=== PATIENT | female | born 1945 | race Caucasian/White ===

== ENCOUNTER 2024-05-13 11:44 | Inpatient (IN) | payer OTHER, MEDICAID, MEDICARE, SELFPAY ==
[2024-05-13] VITALS (12 sets, daily range): BP systolic 145–191; BP diastolic 78–94; PULSE 71–88; RESP 18–20; TEMP 36.7–39.3; O2SAT 90–97; BMI 20.3
--- NOTE | 2024-05-13 11:53 | XR_ITS ---
Examination: AP chest single view Technique: AP portable semiupright chest single view Exam date and time: May 13, 2024 1209 hrs. Comparison August 14, 2023 Indications: Shortness of breath and coughing today Findings: Moderate enlargement left ventricle Atelectasis versus pneumonia left base retrocardiac Significant elevation right hemidiaphragm Mild vascular congestion Prominent osteopenia Impression: Atelectasis versus early pneumonia left base retrocardiac, clinical correlation advised
--- NOTE | 2024-05-13 11:54 | EKG_ITS ---
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[employer]: : 1945 Requested By: Nasrin Sheth Order Number: [id number] Reading MD: Nasrin Sheth Measurements Intervals [place] Rate: 71 P: 68 ND: 173 QRS: -58 QRSD: 125 T: 9 QT: 430 QTc: 470 Interpretive Statements SINUS RHYTHM RIGHT BUNDLE BRANCH BLOCK [120+ ms QRS DURATION, UPRIGHT V1, 40+ ms S IN I/aVL/V4/V5/V6] LEFT ANTERIOR FASCICULAR BLOCK [QRS AXIS <= -45, QR IN I, RS IN II] MINIMAL VOLTAGE CRITERIA FOR LVH, CONSIDER NORMAL VARIANT [MEETS CRITERIA IN ONE OF: R(aVL), S(V1), R(V5), R(V5/V6)+S(V1)] Compared to ECG 01/16/2024 15:31:12 T-wave abnormality no longer present Possible ischemia no longer present /store/S0/[id number].pdf
--- NOTE | 2024-05-13 11:56 | EDNOTE_ITS ---
ED SOB =RME/HPI General Chief Complaint: General Adult/Misc Complain Stated Complaint: HYPOXIA Time Seen by Provider: 05/13/24 11:51 Arrival date/time: 05/13/24 11:44 This is a 79-year-old female that is brought in by ambulance for complaints of shortness of breath, lethargy, weakness and a low-grade temp at facility. Per EMS patient's temp was 100.7. Per facility patient also had a cough. Upon their arrival patient's oxygen saturations were 78% on 2 L nasal cannula. Patient has a history of high blood pressure, dementia, depression, A-fib with RVR . Related Data Home Medications ?Medication ?Instructions ?Recorded ?Confirmed alprazolam 0.25 mg tablet (Xanax) 0.25 mg PO BID 11/08/21 01/16/24 aripiprazole 2 mg tablet 2 mg PO DAILY 11/08/21 01/16/24 potassium chloride 10 mEq 10 meq PO QDAY 11/08/21 01/16/24 tablet,extended release (Klor-Con) spironolactone 50 mg tablet 50 mg PO QAM 11/08/21 01/16/24 (Aldactone) amiodarone 200 mg tablet (Pacerone) 200 mg PO BID 11/09/21 05/13/24 famotidine 20 mg tablet (Pepcid) 20 mg PO QDAY 11/09/21 01/16/24 albuterol sulfate 2.5 mg/3 mL 2.5 mg inhalation Q4HR PRN 05/13/24 05/13/24 (0.083 %) solution for nebulization Shortness Of Breath aluminum-mag hydroxide-simethicone 10 ml PO [id number] PRN Stomach Upset 05/13/24 05/13/24 200 mg-200 mg-20 mg/5 mL oral susp (Dianne-Lanta) amitriptyline 25 mg tablet 25 mg PO DAILY 05/13/24 05/13/24 amlodipine 5 mg tablet 5 mg PO DAILY 05/13/24 05/13/24 ascorbic acid (vitamin C) 250 mg 250 mg PO QDAY 05/13/24 05/13/24 tablet bisacodyl 10 mg rectal suppository See Rx Instructions .Route 05/13/24 05/13/24 (Dulcolax (bisacodyl)) .COMPLEX PRN Constipation buspirone 10 mg tablet 10 mg PO BID 05/13/24 05/13/24 duloxetine 20 mg capsule,delayed 20 mg PO BID 05/13/24 05/13/24 release guaifenesin 100 mg/5 mL oral liquid 200 mg PO Q4H PRN Cough 05/13/24 05/13/24 hydroxyzine HCl 25 mg tablet 25 mg PO Q24H PRN FOR M/B 05/13/24 05/13/24 SEPARATION FROM SPOUSE ibuprofen 200 mg tablet 400 mg PO Q6H PRN PAIN 05/13/24 05/13/24 MODERATE(4-5),SEVERE(6-9) lisinopril 40 mg tablet 40 mg PO DAILY 05/13/24 05/13/24 magnesium hydroxide 400 mg/5 mL 30 ml PO Q72H PRN NO BM FOR 3 DAYS 05/13/24 oral suspension (Milk of Magnesia) metoprolol tartrate 25 mg tablet 25 mg PO BID 05/13/24 05/13/24 multivitamin with minerals 1 tab PO QDAY 05/13/24 05/13/24 ondansetron HCl 4 mg tablet 4 mg PO [id number] PRN Nausea And 05/13/24 05/13/24 Vomiting oxybutynin chloride 10 mg 10 mg PO DAILY 05/13/24 05/13/24 tablet,extended release 24 hr rizatriptan 5 mg tablet 5 mg PO [id number] PRN migraine pain 05/13/24 05/13/24 tramadol 50 mg tablet 50 mg PO [id number] PRN pain scale 05/13/24 05/13/24 4-10 Previous Rx's ?Medication ?Instructions ?Recorded clonidine HCl 0.1 mg tablet 0.1 mg PO TID #0 tabs 12/11/20 gabapentin 300 mg capsule 300 mg PO TID #0 caps 12/11/20 hydrocodone 5 mg-acetaminophen 325 1 tab PO BID PRN pain #4 tabs 11/17/21 mg tablet benzonatate 100 mg capsule 200 mg (2 x 100 mg) PO Q8HR PRN 05/16/24 Cough #0 caps nitrofurantoin macrocrystal 100 mg 100 mg PO BID 7 days #14 caps 05/16/24 capsule pantoprazole 40 mg tablet,delayed 40 mg PO QDAY 30 days #30 tabs 05/16/24 release (Protonix) Allergies Allergy/AdvReac Type Severity Reaction Status Date / Time Sulfa (Sulfonamide Allergy Unknown UNABLE TO Verified 06/04/20 14:02 Antibiotics) DESCRIBE Review of Systems Review of Systems Systems Reviewed: All systems reviewed, normal except as documented Past Medical History Past Medical History NEUROLOGIC: Positive Migraine CARDIAC: Positive Cardiac Disorders and Hypertension; Negative Congestive Heart Failure RESPIRATORY: Negative Chronic Obstructive Pulmonary Disease (COPD) or Asthma GENITOURINARY: Positive Genitourinary Disorders; Negative Renal Disease ENT: Negative Glaucoma ENDOCRINE: Negative Diabetes Mellitus Type 1 or Diabetes Mellitus Type 2 HEMATOLOGIC: Negative Blood Disorders or Sickle Cell Disease Surgical History SURGICAL: Positive Eye Surgery, Abdominal Surgery and Gastric Bypass Surgery Social History SMOKING STATUS: Never smoker SECOND HAND EXPOSURE: No SUBSTANCE USE: unknown ED Exam Narrative Physical exam: General: Thin but not emaciated appears not in any acute distress, warm to touch Head normocephalic HEENT: Eyes: Pupils are PERRLA EOMs are intact mouth pink dry membranes uvula is midline swallow is symmetrical. Within acceptable limits Neck is supple nontender no JVD no edema Chest equal chest rise nontender to palpation Respiratory: Clear to auscultation no wheezes crackles or rubs CV: Rate rhythm is regular no murmurs rubs or clicks Abdomen is soft nontender Back: No CVA tenderness no spinous process tenderness from cervical spine thoracic and lumbar spine Skin: Intact no petechiae rash induration ulceration or crepitus Extremities: Moving all extremity against resistance cap refill less than 2 seconds neurosensory intact, generalized weakness Neuro: Awake alert oriented x1, self, no focal deficits Course Quality Measures none Orders Category Date Time Status Bedside COVID-19 Antigen Test NOW Care 05/13/24 11:52 Completed Bedside COVID-19 Antigen Test NOW Care 05/13/24 13:52 Completed Bedside Influenza A&B Antigen Test NOW Care 05/13/24 11:53 Completed COVID-19 Screening Questionnaire NOW Care 05/13/24 13:40 Completed Behavioral Modification Assistant Q4H START 00 Care 05/13/24 11:53 Completed Continuous Pulse Oximetry NOW Care 05/13/24 11:54 Completed Decision to Admit X1 Care 05/13/24 13:40 Completed EKG (ED ONLY) *Do not use* NOW Care 05/13/24 11:54 Completed IV [Insert IV] STAT Care 05/13/24 11:56 Completed In and Out Catheter X1 Care 05/13/24 13:34 Completed EKG (ED Only) Stat Exams 05/13/24 11:54 Draft XR chest 1V Stat Exams 05/13/24 11:53 Completed BNP [B-Type Natriuretic Peptide] Stat Lab 05/13/24 12:15 Completed Blood Culture (Lab) Stat Lab 05/13/24 13:40 Completed CBC Stat Lab 05/13/24 12:15 Completed Comprehensive Metabolic Panel Stat Lab 05/13/24 12:15 Completed Lactate (Lactic Acid) Stat Lab 05/13/24 12:15 Completed PT [Prothrombin Time with INR] Stat Lab 05/13/24 12:15 Completed Procalcitonin Stat Lab 05/13/24 12:15 Completed Troponin I Stat Lab 05/13/24 12:15 Completed Urinalysis, C/S if Indicated Stat Lab 05/13/24 14:25 Completed Urine Culture Stat Lab 05/13/24 14:25 Completed Acetaminophen Supp [Tylenol Supp] Med 05/13/24 13:33 Discontinued 650 mg KS X1 ONE Acetaminophen Tab [Tylenol ES Tab] Med 05/13/24 13:21 Discontinued 1,000 mg PO X1 ONE Azithromycin Inj [Zithromax Inj] 500 mg Med 05/13/24 13:33 Discontinued Sodium Chloride 0.9% 250 ml [Ns] 250 ml IV X1 Azithromycin Po [Zithromax PO] Med 05/13/24 13:28 Discontinued 500 mg PO X1 ONE Oseltamivir [Tamiflu] Med 05/13/24 13:41 Discontinued 75 mg PO X1 ONE Sodium Chloride 0.9% 1000 ml [Ns] 1,000 ml Med 05/13/24 13:21 Discontinued IV 999 mls/hr cefTRIAXone/D5w 1gm IV premix [Rocephin/D5w 1gm IV Med 05/13/24 13:28 Discontinued premix] 50 ml IV X1 Vital Signs Vital signs: Vital Signs Temperature 102.7 F H 05/13/24 12:37 Pulse Rate 77 05/13/24 12:37 Respiratory Rate 19 05/13/24 12:37 Blood Pressure 170/88 H 05/13/24 12:37 Pulse Oximetry (%) 96 05/13/24 12:37 Oxygen Delivery Method Nasal Cannula 05/13/24 12:37 Oxygen Flow Rate 2 05/13/24 12:37 Shortness of Breath / Dyspnea MDM Narrative MDM Narrative:: Patient febrile with 102.7 rectally. Labs significant for white count 11.9, netrophil count 88, lymph low, patient metabolic panel shows sodium of 132, AST slightly elevated at 49 alk phos is 181, BNP 332, procalcitonin 0.26. Chest x- ray shows right lower lobe infiltrate but was previously there 3 months ago as well. Patient was hypoxic upon arrival on a nonrebreather. Have been able to wean patient on O2 and currently on 6 L nasal cannula. Patient positive for influenza A. Tylenol, IV fluids and Tamiflu ordered for patient. Hospitalist team called to admit patient to the hospital. Patient data External records reviewed:: [facility] previous records and Intermediate records Clinical information provided by:: patient Social determinants that could affect healthcare access:: none Patient has the following chronic illnesses:: see note How is presenting disease/condition affected by chronic disease/condition?: exacerbated by Evaluation data The following diagnostics were reviewed and interpreted by me:: lab results and radiology exam(s) Lab and/or radiology exams considered but not ordered:: none Interpretation Summary: see note Medications / Prescriptions Medications or Prescriptions considered but not ordered:: none Medication administrations:: Medication Administration History Discontinued Medications Acetaminophen (Acetaminophen 500 Mg Tablet) 1,000 mg PO X1 ONE Stop: 05/13/24 13:22 Last Admin: 05/13/24 13:42 Dose: Not Given Documented By: AMINAH Non-Admin Reason: Cancelled by Provider Acetaminophen (Acetaminophen Supp 650 Mg Supp) 650 mg [place] X1 ONE Stop: 05/13/24 13:34 Last Admin: 05/13/24 13:45 Dose: 650 mg Documented By: AMINAH Acetaminophen (Acetaminophen 325 Mg Tablet) 650 mg PO Q6HR PRN PRN Reason: Fever >100.1 Stop: 06/12/24 15:00 Last Admin: 05/15/24 00:04 Dose: 650 mg Documented By: Admin: 05/13/24 20:17 Dose: 650 mg Documented By: Albuterol/Ipratropium (Albuterol/Ipratropium (Duoneb) Rt Shanice 3 Ml Nebu) 3 ml INH Q6HRRT YARY Stop: 06/13/24 12:59 Last Admin: 05/16/24 12:37 Dose: 3 ml Documented By: Admin: 05/16/24 07:17 Dose: 3 ml Documented By: Admin: 05/16/24 00:16 Dose: 3 ml Documented By: SC Admin: 05/15/24 19:38 Dose: 3 ml Documented By: Admin: 05/15/24 12:19 Dose: 3 ml Documented By: Admin: 05/15/24 06:37 Dose: 3 ml Documented By: Admin: 05/15/24 01:45 Dose: 3 ml Documented By: Admin: 05/14/24 19:09 Dose: 3 ml Documented By: Admin: 05/14/24 13:53 Dose: 3 ml Documented By: WILFRIDO Amiodarone HCl (Amiodarone Hcl 200 Mg Tablet) 200 mg PO QDAY YAYR Stop: 06/13/24 08:59 Last Admin: 05/16/24 09:14 Dose: 200 mg Documented By: Admin: 05/15/24 08:28 Dose: 200 mg Documented By: Admin: 05/14/24 08:05 Dose: 200 mg Documented By: Amlodipine Besylate (Amlodipine Besylate 5 Mg Tablet) 5 mg PO QDAY YARY Stop: 06/13/24 08:59 Last Admin: 05/16/24 09:14 Dose: 5 mg Documented By: Admin: 05/15/24 08:38 Dose: 5 mg Documented By: Admin: 05/14/24 08:05 Dose: 5 mg Documented By: Azithromycin (Azithromycin 250 Mg Tablet) 500 mg PO X1 ONE Stop: 05/13/24 13:29 Last Admin: 05/13/24 13:43 Dose: Not Given Documented By: AMINAH Non-Admin Reason: Cancelled by Provider Benzonatate (Benzonatate 100 Mg Capsule) 100 mg PO Q8HR PRN; Protocol PRN Reason: COUGH Stop: 06/13/24 12:21 Last Admin: 05/15/24 08:38 Dose: 100 mg Documented By: Admin: 05/15/24 00:04 Dose: 100 mg Documented By: RB Benzonatate (Benzonatate 100 Mg Capsule) 200 mg PO Q8HR PRN; Protocol PRN Reason: COUGH Stop: 06/13/24 12:21 Last Admin: 05/16/24 09:19 Dose: 200 mg Documented By: RACQUEL Duloxetine HCl (Duloxetine Hcl 30 Mg Capsule) 30 mg PO BID YARY Stop: 06/12/24 20:59 Last Admin: 05/16/24 20:15 Dose: 30 mg Documented By: Admin: 05/16/24 09:14 Dose: 30 mg Documented By: Admin: 05/15/24 21:33 Dose: 30 mg Documented By: Admin: 05/15/24 08:28 Dose: 30 mg Documented By: Admin: 05/14/24 20:20 Dose: 30 mg Documented By: Admin: 05/14/24 08:05 Dose: 30 mg Documented By: Admin: 05/13/24 20:08 Dose: 30 mg Documented By: Enoxaparin Sodium (Enoxaparin Sod Inj 40 Mg/0.4 Ml Syringe) 40 mg SC QDAY YARY Stop: 05/28/24 08:59 Last Admin: 05/16/24 09:13 Dose: 40 mg Documented By: Admin: 05/15/24 08:29 Dose: 40 mg Documented By: Admin: 05/14/24 08:06 Dose: 40 mg Documented By: Famotidine (Famotidine 20 Mg Tablet) 20 mg PO DAILY YARY Stop: 06/12/24 15:14 Last Admin: 05/14/24 08:05 Dose: 20 mg Documented By: Admin: 05/13/24 15:41 Dose: 20 mg Documented By: AMINAH Guaifenesin/Dextromethorphan (Guaifenesin/Dm Tablet) 1 each PO BID YARY Stop: 06/12/24 20:59 Last Admin: 05/16/24 20:15 Dose: 1 each Documented By: Admin: 05/16/24 09:14 Dose: 1 each Documented By: Admin: 05/15/24 21:33 Dose: 1 each Documented By: Admin: 05/15/24 08:28 Dose: 1 each Documented By: Admin: 05/14/24 20:20 Dose: 1 each Documented By: Admin: 05/14/24 08:05 Dose: 1 each Documented By: Admin: 05/13/24 20:08 Dose: 1 each Documented By: Hydralazine HCl (Hydralazine Inj 20 Mg/Ml Vial) 10 mg IV Q2H PRN PRN Reason: SBP >180 Stop: 06/12/24 17:57 Last Admin: 05/13/24 19:33 Dose: 10 mg Documented By: Sodium Chloride (Ns) 1,000 mls @ 999 mls/hr IV .Q1H1M ONE Stop: 05/13/24 14:21 Last Infusion: 05/13/24 15:53 Dose: Infused Documented By: Admin: 05/13/24 13:26 Dose: 999 mls/hr Documented By: AMINAH Ceftriaxone Sodium/Dextrose (Rocephin/D5w 1gm Iv Premix) 50 mls @ 100 mls/hr IV X1 ONE Stop: 05/13/24 13:57 Last Admin: 05/13/24 13:43 Dose: Not Given Documented By: AMINAH Non-Admin Reason: Cancelled by Provider Azithromycin 500 mg/ Sodium (Chloride) 250 mls @ 250 mls/hr IV X1 ONE Stop: 05/13/24 14:32 Last Admin: 05/13/24 13:43 Dose: Not Given Documented By: AMINAH Non-Admin Reason: Cancelled by Provider Ampicillin Sodium/Sulbactam (Sodium 3 gm/ Sodium Chloride) 100 mls @ 200 mls/hr IV Q6HR [facility] Stop: 05/20/24 17:59 Last Admin: 05/14/24 05:15 Dose: 200 mls/hr Documented By: Infusion: 05/14/24 00:17 Dose: Infused Documented By: Admin: 05/13/24 23:47 Dose: 200 mls/hr Documented By: Infusion: 05/13/24 18:39 Dose: Infused Documented By: Admin: 05/13/24 18:09 Dose: 200 mls/hr Documented By: FRIDA Acetaminophen (Ofirmev Inj) 1,000 mg in 100 mls @ 250 mls/hr IV Q6H [facility] Stop: 05/16/24 04:23 Magnesium Sulfate (Magnesium Sulfate Ivpb) 2 gm in 50 mls @ 25 mls/hr IV X1 ONE Stop: 05/15/24 12:09 Last Admin: 05/15/24 10:28 Dose: 25 mls/hr Documented By: Acetaminophen (Ofirmev Inj) 1,000 mg in 100 mls @ 250 mls/hr IV Q6H YARY Stop: 05/16/24 06:53 Last Admin: 05/16/24 06:38 Dose: 250 mls/hr Documented By: Infusion: 05/16/24 01:08 Dose: Infused Documented By: Admin: 05/16/24 00:44 Dose: 250 mls/hr Documented By: Infusion: 05/15/24 18:28 Dose: Infused Documented By: Admin: 05/15/24 18:04 Dose: 250 mls/hr Documented By: Infusion: 05/15/24 12:45 Dose: Infused Documented By: Admin: 05/15/24 12:21 Dose: 250 mls/hr Documented By: Levalbuterol HCl (Levalbuterol Rt 0.63 Mg/3 Ml Nebu) 0.63 mg INH Q8HR PRN PRN Reason: WHEEZING Stop: 06/13/24 02:58 Last Admin: 05/14/24 03:14 Dose: 0.63 mg Documented By: ROGER Lisinopril (Lisinopril 20 Mg Tablet) 20 mg PO X1 ONE Stop: 05/13/24 18:01 Last Admin: 05/13/24 18:03 Dose: Not Given Documented By: UMBERTO Non-Admin Reason: Discontinued Lisinopril (Lisinopril 2.5 Mg Tablet) 10 mg PO X1 ONE Stop: 05/13/24 18:03 Last Admin: 05/13/24 18:13 Dose: 10 mg Documented By: FRIDA Lisinopril (Lisinopril 2.5 Mg Tablet) 10 mg PO X1 ONE Stop: 05/14/24 18:20 Last Admin: 05/14/24 18:36 Dose: 10 mg Documented By: Lisinopril (Lisinopril 20 Mg Tablet) 40 mg PO QDAY YARY Stop: 06/15/24 07:39 Last Admin: 05/16/24 09:34 Dose: Not Given Documented By: RACQUEL Non-Admin Reason: Duplicate Medication on eMAR Admin: 05/16/24 09:14 Dose: 40 mg Documented By: RACQUEL Melatonin (Melatonin 3 Mg Tablet) 3 mg PO X1 ONE Stop: 05/16/24 00:08 Last Admin: 05/16/24 00:44 Dose: 3 mg Documented By: CAMILA Ondansetron HCl (Ondansetron Inj 2 Mg/Ml Inj 2 Ml) 4 mg IV Q6HR PRN; Protocol PRN Reason: NAUSEA OR VOMITING Stop: 06/12/24 15:00 Oseltamivir Phosphate (Oseltamivir 6 Mg/Ml) 75 mg PO X1 ONE Stop: 05/13/24 13:42 Last Admin: 05/13/24 14:29 Dose: 75 mg Documented By: AMINAH Oseltamivir Phosphate (Oseltamivir 75 Mg Capsule) 75 mg PO DAILY [facility] Stop: 05/21/24 08:59 Last Admin: 05/16/24 09:14 Dose: 75 mg Documented By: Admin: 05/15/24 08:38 Dose: 75 mg Documented By: Admin: 05/14/24 08:06 Dose: 75 mg Documented By: Pantoprazole Sodium (Pantoprazole 40 Mg Tablet) 40 mg PO QDAY [facility] Stop: 06/14/24 08:59 Last Admin: 05/16/24 09:15 Dose: 40 mg Documented By: Admin: 05/15/24 08:28 Dose: 40 mg Documented By: Potassium Chloride (Potassium Chloride 10% 20 Meq/15 Ml Udc) 40 meq PO X1 ONE; Protocol Stop: 05/14/24 12:01 Last Admin: 05/14/24 12:22 Dose: 40 meq Documented By: Potassium Chloride (Potassium Chloride 10% 20 Meq/15 Ml Udc) 40 meq PO X1 ONE Stop: 05/14/24 09:31 Last Admin: 05/14/24 09:29 Dose: 40 meq Documented By: Potassium Chloride (Potassium Chloride 10% 20 Meq/15 Ml Udc) 40 meq GT X1 ONE Stop: 05/16/24 08:22 Last Admin: 05/16/24 09:15 Dose: 40 meq Documented By: RACQUEL Potassium Chloride (Potassium Chloride 10% 20 Meq/15 Ml Udc) 40 meq GT X1 ONE Stop: 05/16/24 12:01 Last Admin: 05/16/24 12:26 Dose: 40 meq Documented By: RACQUEL Quetiapine Fumarate (Quetiapine Fumarate 25 Mg Tablet) 25 mg PO X1 ONE Stop: 05/16/24 04:44 Last Admin: 05/16/24 04:53 Dose: 25 mg Documented By: CAMILA Sumatriptan Succinate (Sumatriptan 25 Mg Tablet) 25 mg PO X1 ONE Stop: 05/14/24 04:40 Last Admin: 05/14/24 04:55 Dose: 25 mg Documented By: ME Sumatriptan Succinate (Sumatriptan 25 Mg Tablet) 25 mg PO X1 ONE Stop: 05/14/24 18:46 Last Admin: 05/14/24 20:20 Dose: 25 mg Documented By: RB Sumatriptan Succinate (Sumatriptan 25 Mg Tablet) 25 mg PO HS YARY Stop: 06/14/24 20:59 Sumatriptan Succinate (Sumatriptan 25 Mg Tablet) 25 mg PO DAILY PRN PRN Reason: MIGRAINE HEADACHE Stop: 06/14/24 13:34 Last Admin: 05/15/24 22:43 Dose: 25 mg Documented By: CAMILA see mar Consultations Consultation(s) initiated? (list below): No Diagnosis Shortness of Breath Differential Diagnosis: acute exacerbation of chronic obstructive airways disease, congestive heart failure, community acquired pneumonia and other (influenza a ) Most likely diagnosis given after review of the tests above:: influenza a Admission Indicated Admission indicated?: indicated Admission Request Was there a request for admission?: Yes Admission Attestation Admission request attestation: Discussed case with [] from Hospitalist service regarding admission. Discussed patients ED course, exam findings, labs, and radiology results. The Hospitalist [agrees,declines] to accept the patient for admission. Disposition Plan Disposition Plan: Discharge Discharge Attestation Discharge Attestation: The patient and all family members were given an opportunity to ask questions and understood the discharge instructions. Discharge instructions specifically effects, indications for sooner follow up or return to the emergency department, and the expected course of current diagnosis. Patient condition: Stable Discharge Plan Plan Patient Disposition: Admit Acute Care w/in Hospital Disposition Comment: [facility] Patient condition on transfer: Stable Problem List Clinical Impression: Influenza A, Fever Patient/Caregiver Discharge Instructions Other Activity Instructions:: PATIENT INSTRUCTIONS: Follow-up with primary care provider within 1 week of discharge. Discussed elevation for polypharmacy with your PCP Return to Emergency Room if symptoms persist, worsen, or new symptoms develop. Stop taking CLONIDINE until you're seen by your PCP Continue taking all other medications as prescribed below: ? BENZONATATE 200 mg every 4 hours as needed for cough (NEW) ? Oseltamivir 75 mg twice daily (NEW) ? PANTOPRAZOLE 40 mg release daily (NEW) ? NITROFURANTOIN 100 mg twice daily (NEW) ? ALBUTEROL sulfate inhaler every 4 hours as needed for SOB ? GUAIFENESIN 200 mg q.4 hours PRN for cough ? ALPRAZOLAM 0.25 mg twice daily as needed ? AMITRIPTYLINE 25 mg daily ? TRAMADOL 50 mg q.6h. as needed for pain ? RIZATRIPTAN 5 mg every 6 hours PRN ? BUSPIRONE 10 mg twice daily ? DULOXETINE milligram twice daily ? HYDROXYZINE q.24 hours PRN ? GABAPENTIN 300 mg 3 times daily ? AMIODARONE 200 mg twice daily ? AMLODIPINE 5 mg daily ? LISINOPRIL 40 mg daily ? METOPROLOL 25 mg BID ? SPIRONOLACTONE 50 mg daily in the morning. ? POTASSIUM CHLORIDE 10 mill equivalent daily. ? OXYBUTYNIN 10 mg daily ? IBUPROFEN 200 mg every 6 hours for moderate pain ? IBUPROFEN 400 mg every 6 hours for severe pain ? HYDROCODONE ACETAMINOPHEN 5?3 25 twice daily as needed for severe pain ? Aluminum magnesium hydroxide SIMETHICONE suspension as prescribed. ? DULCOLAX 10 mg suppository as needed for constipation ? Milk of magnesia every 3 days as needed ? ONDANSETRON 4 mg every 6 hours as needed for nausea or vomiting. ? Multivitamin tablets daily ? VITAMIN C 25 mg daily PA/STONEWORK SUPERVISOR Supervising Physician PA/STONEWORK SUPERVISOR Supervising Physician: philip
[2024-05-13 12:39] LABS: Lactate (Lactic Acid) 1.3 mMol/L (0.4-2.0)
[2024-05-13 12:51] LABS: Basophils % (Auto) 0 % (0-2.5); Eosinophils % (Auto) 0 % (0-10); Hematocrit 40.6 % (36.0-46.0); Hemoglobin 12.9 g/dL (12.0-16.0); Immature Granulocytes % (Auto) 1 % (0-0); Lymphocytes # (Auto) 0.6 Thou/mm3 (1.0-4.8); Lymphocytes % (Auto) 5 % (10-50); Mean Corpuscular HGB Conc 31.8 g/dl (31.0-37.0); Mean Corpuscular Hemoglobin 26.9 pg (25.0-35.0); Mean Corpuscular Volume 85 fL (80-100); Monocytes # (Auto) 0.7 Thou/mm3 (0.0-0.8); Monocytes % (Auto) 6 % (0-12); Neutrophils # (Auto) 10.5 Thou/mm3 (1.8-7.7); Neutrophils % (Auto) 88 % (37-80); Nucleated Red Blood Cell % 0 /100 WBC (0); Platelet Count 344 Thou/mm3 (140-440); RDW Standard Deviation 47.2 fL (36.4-46.3); White Blood Count 11.9 Thou/mm3 (3.6-11.0)
[2024-05-13 12:57] LABS: Prothrombin Time 10.9 Seconds (9.0-12.2)
[2024-05-13 12:58] LABS: B-Type Natriuretic Peptide 332 pg/mL (0-100)
[2024-05-13 13:06] LABS: Alanine Aminotransferase 47 U/L (10-49); Albumin/Globulin Ratio 1.7 (1.2-2.2); Alkaline Phosphatase 181 U/L (46-116); Anion Gap 6 (7-16); Aspartate Amino Transferase 49 U/L (0-34); BUN/Creatinine Ratio 20 Ratio (12-20); Bilirubin,Total 0.2 mg/dL (0.3-1.2); Blood Urea Nitrogen 16 mg/dL (9-23); Calcium 8.8 mg/dL (8.3-10.6); Calcium (Corrected) 8.8 mg/dL (8.5-10.1); Carbon Dioxide 25.6 mMol/L (20.0-31.0); Chloride 100 mMol/L (98-107); Creatinine (Component) 0.8 mg/dL (0.6-1.3); Globulin 2.3 gm/dL (2.3-3.5); Glucose 98 mg/dL (74-106); Osmolality,Calculated 265 (275-295); Potassium 3.6 mMol/L (3.4-5.1); Procalcitonin 0.26 ng/ml (0.0-0.49); Sodium 132 mMol/L (136-145); Total Protein 6.3 gm/dL (5.7-8.2); Troponin I < 0.020 ng/mL (0.0-0.045); eGFR > 60 See Note
[2024-05-13] MEDS: SODIUM CHLORIDE 0.9% 1000 ML 1,000 ML 999 ML IV (13:26)
[2024-05-13] MEDS: ACETAMINOPHEN SUPP 650 MG SUPP PR (13:45)
[2024-05-13] MEDS: OSELTAMIVIR 6 MG/ML 75 MG PO (14:29)
[2024-05-13 15:15] LABS: Collection Type, Urine Catheter; Squamous Epithelial Cell,Urine 0 /hpf (0-5)
--- NOTE | 2024-05-13 15:29 | ESHP_ITS ---
Documentation for date of: 05/13/24 [facility] History of Present Illness Chief complaint: Altered sensorium History of present illness: A 78-year-old female with a past medical history of dementia, migraines, paroxysmal atrial fibrillation, spondylosis, major depressive disorder, hypertension, who brought in by ambulance to ER from [facility] with chief complaints of altered mental status and low oxygen saturations noted in her facility. Patient was noted to have altered sensorium and when examined her she was found to have low saturations at 70s in the transitional care center following which patient was started on oxygen through nasal cannula and EMS was called. When the EMS arrived patient was found to have still low oxygen saturations at 80s and patient was started on oxygen through oxygen mask following which saturations became normal. Patient was immediately brought to the ED following which patient slowly regained her sensorium. When asked about history, patient stated that she does not remember how she came to the hospital. Stated that she is having severe cough and mild chest pain due to cough. Denies fever, abdominal pain, burning micturition, shortness of breath. Patient is having dementia at baseline and does not remember the history well. ED Course: -Initial vitals were blood pressure 170/88 mmHg, pulse rate 77 bpm, respiratory rate 19/min, temperature 102.7 ?F, SpO2 96% with 2 L oxygen through nasal cannula -Labs significant for elevated WBC, 11.9, sodium 132, AST 49, BNP 332, Pro-Cholo 0.26, lactate 1.3. Urine analysis showed 6 RBC with 3 WBC. Chest x-ray showed signs of early pneumonia versus atelectasis in left retrocardiac base. EKG showed normal sinus rhythm with right bundle branch block. Tested positive for influenza B and negative for COVID and influenza A. -In the ED, patient was given a bolus of 1 L NS, Tamiflu, ceftriaxone and azithromycin -Patient was admitted for acute encephalopathy secondary to acute hypoxic respiratory failure due to influenza B Past medical history: dementia, migraines, paroxysmal atrial fibrillation, spondylosis, major depressive disorder, hypertension Past surgical history: Cholecystectomy, breast implants Social history: Smoking during teenage for 1 to 2 years and stopped since after, denies alcohol, other illicit drug abuse Allergies: Sulfa Review of Systems Review of Systems Narrative Review of Systems: Constitutional: No Weight Change, No Fever, No Chills, No Night Sweats, No Fatigue, No Malaise ENT/Mouth: No Hearing Changes, No Ear Pain, No Nasal Congestion, No Sinus Pain, No Hoarseness, No sore throat, No Rhinorrhea, No Swallowing Difficulty Eyes: No Eye Pain, No Swelling, No Redness, No Foreign Body, No Discharge, No Vision Changes Cardiovascular: No Chest Pain, SOB, No PND, No Dyspnea on Exertion, No Orthopnea, No Edema, No Palpitations Respiratory: Cough, No Sputum, No Wheezing, Dyspnea Gastrointestinal: No Nausea, No Vomiting, No Diarrhea, No Constipation, No Pain, No Heartburn, No Anorexia, No Dysphagia, No Hematochezia, No Melena, No Flatulence, No Jaundice Genitourinary: No Dysuria, No Urinary Frequency, No Hematuria, No Urinary Incontinence, No Urgency, No Flank Pain, No Urinary Flow Changes, No Hesitancy Musculoskeletal: No Arthralgias, No Myalgias, No Joint Swelling, No Joint Stiffness, No Back Pain, No Neck Pain, No Injury History Skin: No Skin Lesions, No Pruritis Neuro: No Weakness, No Numbness, No Paresthesias, No Loss of Consciousness, No Syncope, No Dizziness, No Headache, No Coordination Changes, No Recent Falls Exam Vital Signs Temp Pulse Resp BP Pulse Ox O2 Del Method O2 Flow Rate 102.2 F H 78 18 159/81 H 97 Room Air 2 05/13/24 14:27 05/13/24 14:27 05/13/24 14:27 05/13/24 14:27 05/13/24 14:27 05/13/24 14:27 05/13/24 12:37 Narrative Exam General: Awake. Responding to questions appropriately. HEENT: Normocephalic, atraumatic, mucous membranes dry. Heart: Regular rate and rhythm, no murmurs. Lungs: Bilateral transmitted breath sounds heard. Patient is coughing severely so breath sounds are not well-appreciated. Abdomen: Soft, nondistended, nontender, positive bowel sounds. ?No guarding or rebound tenderness. Neurologic: Alert and oriented x3, no gross neurological deficit, and patient able to move all 4 extremities. Extremities: No edema. Skin: No rash or ecchymoses. Results: Labs 05/14/24 04:40 05/14/24 04:40 Labs: Short CBC 12/28/24 Range/Units 12:15 WBC 11.9 H (3.6-11.0) Thou/mm3 Hgb 12.9 (12.0-16.0) g/dL Hct 40.6 (36.0-46.0) % Plt Count 344 (140-440) Thou/mm3 BMP 05/13/24 12:15 Sodium 132 L Potassium 3.6 Chloride 100 Carbon Dioxide 25.6 BUN 16 Creatinine 0.8 Glucose 98 Calcium 8.8 Cardiac Enzymes 05/13/24 Range/Units 12:15 Troponin I < 0.020 (0.0-0.045) ng/mL Liver Function 05/13/24 Range/Units 12:15 Total Bilirubin 0.2 L (0.3-1.2) mg/dL AST 49 H (0-34) U/L ALT 47 (10-49) U/L Alkaline Phosphatase 181 H (46-116) U/L Albumin 4.0 (3.4-4.8) gm/dL Quality Measures Quality Measures VTE prophylaxis Advance care planning discussed with:: patient Medications Home Medications and Allergies Home Medications ?Medication ?Instructions ?Recorded ?Confirmed ?Type alprazolam 0.25 mg tablet (Xanax) 0.25 mg PO BID 11/08/21 01/16/24 History aripiprazole 2 mg tablet 2 mg PO DAILY 11/08/21 01/16/24 History potassium chloride 10 mEq 10 meq PO QDAY 11/08/21 01/16/24 History tablet,extended release (Klor-Con) spironolactone 50 mg tablet 50 mg PO QAM 11/08/21 01/16/24 History (Aldactone) amiodarone 200 mg tablet (Pacerone) 200 mg PO BID 11/09/21 05/13/24 History famotidine 20 mg tablet (Pepcid) 20 mg PO QDAY 11/09/21 01/16/24 History albuterol sulfate 2.5 mg/3 mL 2.5 mg inhalation Q4HR PRN 05/13/24 05/13/24 History (0.083 %) solution for nebulization Shortness Of Breath aluminum-mag hydroxide-simethicone 10 ml PO [id number] PRN Stomach Upset 05/13/24 05/13/24 History 200 mg-200 mg-20 mg/5 mL oral susp (Dianne-Lanta) amitriptyline 25 mg tablet 25 mg PO DAILY 05/13/24 05/13/24 History amlodipine 5 mg tablet 5 mg PO DAILY 05/13/24 05/13/24 History ascorbic acid (vitamin C) 250 mg 250 mg PO QDAY 05/13/24 05/13/24 History tablet bisacodyl 10 mg rectal suppository See Rx Instructions .Route 05/13/24 05/13/24 History (Dulcolax (bisacodyl)) .COMPLEX PRN Constipation buspirone 10 mg tablet 10 mg PO BID 05/13/24 05/13/24 History duloxetine 20 mg capsule,delayed 20 mg PO BID 05/13/24 05/13/24 History release guaifenesin 100 mg/5 mL oral liquid 200 mg PO Q4H PRN Cough 05/13/24 05/13/24 History hydroxyzine HCl 25 mg tablet 25 mg PO Q24H PRN FOR M/B 05/13/24 05/13/24 History SEPARATION FROM SPOUSE ibuprofen 200 mg tablet 400 mg PO Q6H PRN PAIN 05/13/24 05/13/24 History MODERATE(4-5),SEVERE(6-9) lisinopril 40 mg tablet 40 mg PO DAILY 05/13/24 05/13/24 History magnesium hydroxide 400 mg/5 mL 30 ml PO Q72H PRN NO BM FOR 3 DAYS 05/13/24 05/13/24 History oral suspension (Milk of Magnesia) metoprolol tartrate 25 mg tablet 25 mg PO BID 05/13/24 05/13/24 History multivitamin with minerals 1 tab PO QDAY 05/13/24 05/13/24 History ondansetron HCl 4 mg tablet 4 mg PO [id number] PRN Nausea And 05/13/24 05/13/24 History Vomiting oxybutynin chloride 10 mg 10 mg PO DAILY 05/13/24 05/13/24 History tablet,extended release 24 hr rizatriptan 5 mg tablet 5 mg PO [id number] PRN migraine pain 05/13/24 05/13/24 History tramadol 50 mg tablet 50 mg PO [id number] PRN pain scale 05/13/24 05/13/24 History 4-10 Allergies Allergy/AdvReac Type Severity Reaction Status Date / Time Sulfa (Sulfonamide Allergy Unknown UNABLE TO Verified 06/04/20 14:02 Antibiotics) DESCRIBE Visit Medications Acetaminophen (Acetaminophen 325 Mg Tablet) 650 mg PO Q6HR PRN PRN Reason: Fever >100.1 Stop: 06/12/24 15:00 Duloxetine HCl (Duloxetine Hcl 30 Mg Capsule) 30 mg PO BID [facility] Stop: 06/12/24 20:59 Enoxaparin Sodium (Enoxaparin Sod Inj 40 Mg/0.4 Ml Syringe) 40 mg SC QDAY [facility] Stop: 05/28/24 08:59 Famotidine (Famotidine 20 Mg Tablet) 20 mg PO DAILY [facility] Stop: 06/12/24 15:14 Guaifenesin/Dextromethorphan (Guaifenesin/Dm Tablet) 1 each PO BID [facility] Stop: 06/12/24 20:59 Ampicillin Sodium/Sulbactam (Sodium 3 gm/ Sodium Chloride) 100 mls @ 200 mls/hr IV Q6HR [facility] Stop: 05/20/24 17:59 Ondansetron HCl (Ondansetron Inj 2 Mg/Ml Inj 2 Ml) 4 mg IV Q6HR PRN; Protocol PRN Reason: NAUSEA OR VOMITING Stop: 06/12/24 15:00 Oseltamivir Phosphate (Oseltamivir 75 Mg Capsule) 75 mg PO DAILY [facility] Stop: 05/21/24 08:59 Discontinued Medications Acetaminophen (Acetaminophen 500 Mg Tablet) 1,000 mg PO X1 ONE Stop: 05/13/24 13:22 Last Admin: 05/13/24 13:42 Dose: Not Given Acetaminophen (Acetaminophen Supp 650 Mg Supp) 650 mg ID X1 ONE Stop: 05/13/24 13:34 Last Admin: 05/13/24 13:45 Dose: 650 mg Azithromycin (Azithromycin 250 Mg Tablet) 500 mg PO X1 ONE Stop: 05/13/24 13:29 Last Admin: 05/13/24 13:43 Dose: Not Given Sodium Chloride (Ns) 1,000 mls @ 999 mls/hr IV .Q1H1M ONE Stop: 05/13/24 14:21 Last Admin: 05/13/24 13:26 Dose: 999 mls/hr Ceftriaxone Sodium/Dextrose (Rocephin/D5w 1gm Iv Premix) 50 mls @ 100 mls/hr IV X1 ONE Stop: 05/13/24 13:57 Last Admin: 05/13/24 13:43 Dose: Not Given Azithromycin 500 mg/ Sodium (Chloride) 250 mls @ 250 mls/hr IV X1 ONE Stop: 05/13/24 14:32 Last Admin: 05/13/24 13:43 Dose: Not Given Oseltamivir Phosphate (Oseltamivir 6 Mg/Ml) 75 mg PO X1 ONE Stop: 05/13/24 13:42 Last Admin: 05/13/24 14:29 Dose: 75 mg Assessment & Plan Plan A 78-year-old female with a past medical history of dementia, migraines, paroxysmal atrial fibrillation, spondylosis, major depressive disorder, hypertension, who brought in by ambulance to ER from [facility] with chief complaints of altered mental status # Acute encephalopathy, resolved # Acute hypoxic respiratory failure #Influenza B pneumonia # To rule out other superimposed bacterial pneumonia vs aspiration -Was brought to the hospital with complaints of altered mental status -Noted to have low saturations at 70,s in her facility following which EMS was called and patient was brought to the hospital. -Patient sensorium improved after coming to the ED. When the hospitalist team saw the patient patient is completely awake alert and oriented with baseline dementia. -Patient was found to have temperature of 102.7,WBC 11.9 -meets the criteria for sepsis with source of infection as influenza B, but patient does not look septic at this point. -Lactate was 1.3 at the time of admission. -Chest x-ray - Atelectasis versus early pneumonia left base retrocardiac -Tested negative for COVID, influenza A and positive for influenza B. -Patient is reported to have progressive decline in mental status over a significant period of time,per patients son history during previous admission -Received a dose of Tamiflu, ceftriaxone and azithromycin in the ED -Received 1 L of NS in the ED Plan -Patient was started on Unasyn (05/13- -Blood and urine cultures were sent, results pending -Started on Tamiflu 75mg P.o. daily (05/13 - -Oxygen, as needed -Mucomyst 1 tablet p.o. twice daily -Chest physiotherapy was ordered as needed. # History of hypertension # uncontrolled HTN -Patient was found to have blood pressure of 170/88 mmHg. -Patient lives at [facility]. -Patient is on amlodipine, lisinopril in the nursing facility based on the pharmacy refills. -Medication compliance is not known. -Uncontrolled HTN could be due to the ongoing sepsis. Plan Resumed her home medication amlodipine 5 Mg p.o. daily Hydralazine 10 Mg as needed if SBP greater than 170 mmHg # History of paroxysmal A-fib -On chart review patient was found to have atrial fibrillation in 2017 -No further episodes of atrial fibrillation noted on chart review -EKG during this admission showed normal sinus rhythm with right bundle branch block -Echo on 01/2024 showed Normal LV size and wall thickness. Estimated EF 60- 65%.The RV is normal in size and systolic function. Trace mitral and trace tricuspid regurgitation Plan Will continue amiodarone 200 Mg twice daily which is her home medication. Started on metoprolol XL 25 Mg P.o. daily and will titrate the dose according to the heart rate. [id number] score is 4. # Mild Transiminitis -Likely in the setting of acute illness plan will monitor levels. # History of dementia - Could be age-related # History of migraine -Patient is using triptans at facility -Will hold the medications for now and resume as needed. Disposition: Med-tele DVT Prophylaxis: Levenox 40 mg GI Prophylaxis: Pantoprozole 40mg Diet: low sodium Code status: Full Patient plan of care was discussed with the attending physician, Dr. Cinda Aguirre, PGY1 Attending Provider Attestation/Addendum I have discussed and was present for the essential components of the history, physical examination, diagnosis, and treatment plan with the resident. I agree with the patient's care as documented by the resident and amended herein by me. Omid Loo DO. Patient seen and evaluated this AM. In Short, patient 78-year-old female with significant past medical history of paroxysmal atrial fibrillation, MDD, hypertension, migraines and dementia who presented for acute hypoxic respiratory failure subsequently admitted for pneumonia secondary to influenza. Patient started on Tamiflu, I do not believe any antibiotics are needed at this time hence we will discontinue Unasyn. Will restart patient's home medications as appropriate. Although this document has been carefully reviewed, there may still be some phonetic and other typographical errors. These errors are purely grammatical due to imperfections in the software program and should not be construed in any way to compromise the substance of the patient's medical care during this visit.
[2024-05-13 15:39] LABS: Bilirubin,Urine Negative (Negative); Blood,Urine 1+ (Negative); Color,Urine Lt-Yellow (Lt Yel-Yel); Culture Indicated,Urine Yes; Glucose, Urine Negative (Negative); Ketones,Urine Negative (Negative); Leukocyte Esterase,Urine Negative (Negative); Nitrite,Urine Positive (Negative); PH,Urine 6.5 (5.0-7.0); Protein,Urine Trace (Neg - Trace); RBC,Urine 6 /hpf (0-3); Specific Gravity,Urine 1.011 (1.001-1.035); Urobilinogen,Urine Negative mg/dL (0.0-1.0); WBC,Urine 3 /hpf (0-5)
[2024-05-13 15:41] LABS: Bacteria,Urine 3+; Clarity,Urine Hazy (Clear/Hazy)
[2024-05-13] MEDS: FAMOTIDINE 20 MG TABLET PO (15:41)
[2024-05-13] MEDS: AMPICILLIN/SULBAC INJ 3 GM in SODIUM CHLORIDE 0.9% (P) 100 ML IV ×2 (18:09→23:47)
[2024-05-13] MEDS: Lisinopril 2.5 MG TABLET 10 MG PO (18:13)
[2024-05-13] MEDS: hydrALAZINE INJ 20 MG/ML VIAL 10 MG IV (19:33)
[2024-05-13] MEDS: DULoxetine HCL 30 MG CAPSULE PO (20:08)
[2024-05-13] MEDS: guaiFENesin/DM TABLET 1 EACH PO (20:08)
[2024-05-13] MEDS: ACETAMINOPHEN 325 MG TABLET 650 MG PO (20:17)
[2024-05-14] VITALS (13 sets, daily range): BP systolic 137–158; BP diastolic 71–101; PULSE 65–95; RESP 18–26; TEMP 36.3–36.9; O2SAT 93–97
[2024-05-14] MEDS: LEVALBUTEROL RT 0.63 MG/3 ML NEBU INH (03:14)
[2024-05-14] MEDS: SUMAtriptan 25 MG TABLET PO ×2 (04:55→20:20)
[2024-05-14 05:10] LABS: Basophils % (Auto) 0 % (0-2.5); Eosinophils % (Auto) 0 % (0-10); Hematocrit 35.7 % (36.0-46.0); Hemoglobin 11.2 g/dL (12.0-16.0); Immature Granulocytes % (Auto) 1 % (0-0); Immature Granulocytes Auto 0.06 Thou/mm3 (0.00-0.00); Lymphocytes # (Auto) 1.1 Thou/mm3 (1.0-4.8); Lymphocytes % (Auto) 14 % (10-50); Mean Corpuscular HGB Conc 31.4 g/dl (31.0-37.0); Mean Corpuscular Hemoglobin 26.4 pg (25.0-35.0); Mean Corpuscular Volume 84 fL (80-100); Monocytes # (Auto) 0.7 Thou/mm3 (0.0-0.8); Monocytes % (Auto) 9 % (0-12); Neutrophils # (Auto) 6.4 Thou/mm3 (1.8-7.7); Neutrophils % (Auto) 77 % (37-80); Nucleated Red Blood Cell % 0 /100 WBC (0); Platelet Count 316 Thou/mm3 (140-440); RDW Standard Deviation 47.7 fL (36.4-46.3); Red Blood Count 4.24 Miln/mm3 (4.00-5.20); White Blood Count 8.4 Thou/mm3 (3.6-11.0)
[2024-05-14] MEDS: AMPICILLIN/SULBAC INJ 3 GM in SODIUM CHLORIDE 0.9% (P) 100 ML IV (05:15)
[2024-05-14 05:32] LABS: Anion Gap 6 (7-16); BUN/Creatinine Ratio 17 Ratio (12-20); Blood Urea Nitrogen 12 mg/dL (9-23); Carbon Dioxide 28.1 mMol/L (20.0-31.0); Chloride 102 mMol/L (98-107); Creatinine (Component) 0.7 mg/dL (0.6-1.3); Estimated Creatinine Clearance 61.7 mL/min (>60); Glucose 89 mg/dL (74-106); Osmolality,Calculated 270 (275-295); Potassium 3.1 mMol/L (3.4-5.1); Sodium 136 mMol/L (136-145); Thyroid Stimulating Hormone 0.69 uIU/mL (0.55-4.78); eGFR > 60 See Note
[2024-05-14] MEDS: AMIODARONE HCL 200 MG TABLET PO (08:05)
[2024-05-14] MEDS: guaiFENesin/DM TABLET 1 EACH PO ×2 (08:05→20:20)
[2024-05-14] MEDS: DULoxetine HCL 30 MG CAPSULE PO ×2 (08:05→20:20)
[2024-05-14] MEDS: amLODIPine BESYLATE 5 MG TABLET PO (08:05)
[2024-05-14] MEDS: FAMOTIDINE 20 MG TABLET PO (08:05)
[2024-05-14] MEDS: ENOXAPARIN SOD INJ 40 MG/0.4 ML SYRINGE SC (08:06)
[2024-05-14] MEDS: OSELTAMIVIR 75 MG CAPSULE PO (08:06)
[2024-05-14] MEDS: POTASSIUM CHLORIDE 10% 20 MEQ/15 ML UDC 40 MEQ PO ×2 (09:29→12:22)
--- NOTE | 2024-05-14 11:41 | PD.RESPRO ---
Documentation for date of: 05/14/24 Subjective Subjective Interval history: No acute overnight events. Still complains of sob and nonproductive, dry cough. Also endorsing chronic, postprandial epigastric pain. Denies fever, chills, headaches, chest pain, productive cough, other GI symptoms, or urinary symptoms. Exam Vital Signs Temp Pulse Resp BP Pulse Ox O2 Del Method O2 Flow Rate 98.4 F 79 18 140/71 H 95 Nasal Cannula 1 05/14/24 08:00 05/14/24 08:05 05/14/24 08:00 05/14/24 08:05 05/14/24 08:00 05/14/24 08:00 05/14/24 08:00 Narrative Exam General: Normal appearing elderly male, in mild distress due to cough. HEENT: Normocephalic, atraumatic, mucous membranes dry. Heart: Regular rate and rhythm, no murmurs. Lungs: Bilateral transmitted breath sounds heard. Patient is coughing severely so breath sounds are not well-appreciated. Abdomen: Soft, nondistended, nontender, positive bowel sounds. ?No guarding or rebound tenderness. Neurologic: Alert and oriented x3, no gross neurological deficit, and patient able to move all 4 extremities. Extremities: No edema, swelling or rashes. Skin: No rash or ecchymoses. Objective Labs 05/15/24 05:20 05/15/24 05:20 Labs: Laboratory Results - last 24 hr 05/13/24 05/13/24 05/14/24 12:15 14:25 04:40 WBC 11.9 H 8.4 RBC 4.80 4.24 Hgb 12.9 11.2 L Hct 40.6 35.7 L MCV 85 84 MCH 26.9 26.4 MCHC 31.8 31.4 RDW Std Deviation 47.2 H 47.7 H Plt Count 344 316 Neut % (Auto) 88 H 77 Lymph % (Auto) 5 L 14 Clare % (Auto) 6 9 Eos % (Auto) 0 0 Baso % (Auto) 0 0 Neut # (Auto) 10.5 H 6.4 Lymph # (Auto) 0.6 L 1.1 Clare # (Auto) 0.7 0.7 Eos # (Auto) 0.0 0.0 Baso # (Auto) 0.0 0.0 Immature Gran # (Auto) 0.10 H 0.06 H Absolute Nucleated RBC 0.00 0.00 Immature Gran % 1 H 1 H Nucleated RBC % 0 0 PT 10.9 INR 1.0 Sodium 132 L 136 Potassium 3.6 3.1 L D Chloride 100 102 Carbon Dioxide 25.6 28.1 Anion Gap 6 L 6 L BUN 16 12 Creatinine 0.8 0.7 Estim Creat Clear Calc 54.0 L 61.7 eGFR > 60 > 60 BUN/Creatinine Ratio 20 17 Glucose 98 89 Calculated Osmolality 265 L 270 L Lactic Acid 1.3 Calcium 8.8 8.0 L Corrected Calcium 8.8 Total Bilirubin 0.2 L AST 49 H ALT 47 Alkaline Phosphatase 181 H Troponin I < 0.020 B-Natriuretic Peptide 332 H Total Protein 6.3 Albumin 4.0 Globulin 2.3 Albumin/Globulin Ratio 1.7 Procalcitonin 0.26 TSH 0.69 Ur Collection Type Catheter Urine Color Lt-Yellow Urine Clarity Hazy Urine pH 6.5 Ur Specific [facility] 1.011 Urine Protein Trace Urine Glucose (UA) Negative Urine Ketones Negative Urine Blood 1+ A Urine Nitrite Positive Urine Bilirubin Negative Urine Urobilinogen (Auto) Negative Ur Leukocyte Esterase Negative Urine RBC 6 H Urine WBC 3 Ur Squamous Epith Cells 0 Urine Bacteria 3+ A Ur Culture Indicated? Yes Quality Measures Quality Measures VTE prophylaxis Advance care planning discussed with:: patient Assessment & Plan Assessment Current Active Medications: Generic Name Dose Route Start Last Admin Trade Name Freq PRN Reason Stop Dose Admin Acetaminophen 650 mg 05/13/24 15:01 05/13/24 20:17 Acetaminophen 325 Mg Tablet PO 06/12/24 15:00 650 mg Q6HR PRN Administration Fever >100.1 Albuterol/Ipratropium 3 ml 05/14/24 13:00 Albuterol/Ipratropium (Duoneb) Rt Shanice 3 Ml Nebu INH 06/13/24 12:59 Q6HRRT YARY Amiodarone HCl 200 mg 05/14/24 09:00 05/14/24 08:05 Amiodarone Hcl 200 Mg Tablet PO 06/13/24 08:59 200 mg QDAY YARY Administration Amlodipine Besylate 5 mg 05/14/24 09:00 05/14/24 08:05 Amlodipine Besylate 5 Mg Tablet PO 06/13/24 08:59 5 mg QDAY YARY Administration Duloxetine HCl 30 mg 05/13/24 21:00 05/14/24 08:05 Duloxetine Hcl 30 Mg Capsule PO 06/12/24 20:59 30 mg BID YARY Administration Enoxaparin Sodium 40 mg 05/14/24 09:00 05/14/24 08:06 Enoxaparin Sod Inj 40 Mg/0.4 Ml Syringe SC 05/28/24 08:59 40 mg QDAY YARY Administration Guaifenesin/Dextromethorphan 1 each 05/13/24 21:00 05/14/24 08:05 Guaifenesin/Dm Tablet PO 06/12/24 20:59 1 each BID YARY Administration Hydralazine HCl 10 mg 05/13/24 17:58 05/13/24 19:33 Hydralazine Inj 20 Mg/Ml Vial IV 06/12/24 17:57 10 mg Q2H PRN Administration SBP >180 Ondansetron HCl 4 mg 05/13/24 15:01 Ondansetron Inj 2 Mg/Ml Inj 2 Ml IV 06/12/24 15:00 Q6HR PRN NAUSEA OR VOMITING Protocol Oseltamivir Phosphate 75 mg 05/14/24 09:00 05/14/24 08:06 Oseltamivir 75 Mg Capsule PO 05/21/24 08:59 75 mg DAILY YARY Administration Pantoprazole Sodium 40 mg 05/15/24 09:00 Pantoprazole 40 Mg Tablet PO 06/14/24 08:59 QDAY YARY Potassium Chloride 40 meq 05/14/24 12:00 Potassium Chloride 10% 20 Meq/15 Ml Udc PO 05/14/24 12:01 X1 ONE Protocol Plan A 78-year-old female with a past medical history of dementia, migraines, paroxysmal atrial fibrillation, spondylosis, major depressive disorder, hypertension, who brought in by ambulance to ER from [facility] with chief complaints of altered mental status # Acute encephalopathy, resolved # Acute hypoxic respiratory failure #Influenza B pneumonia # To rule out other superimposed bacterial pneumonia vs aspiration -Was brought to the hospital with complaints of altered mental status -Noted to have low saturations at 70,s in her facility following which EMS was called and patient was brought to the hospital. -Patient sensorium improved after coming to the ED. When the hospitalist team saw the patient patient is completely awake alert and oriented with baseline dementia. -Patient was found to have temperature of 102.7,WBC 11.9 -meets the criteria for sepsis with source of infection as influenza B, but patient does not look septic at this point. -Lactate was 1.3 at the time of admission. -Chest x-ray - Atelectasis versus early pneumonia left base retrocardiac -Tested negative for COVID, influenza A and positive for influenza B. -Patient is reported to have progressive decline in mental status over a significant period of time,per patients son history during previous admission -Received a dose of Tamiflu, ceftriaxone and azithromycin in the ED -Received 1 L of NS in the ED Currently on room air, still has dry, nonproductive cough. Afebrile, no leukocytosis Plan -Discontinued Unasyn (05/13-05/14), less likely bacterial pneumonia -Blood and urine cultures were sent, results pending -Started on Tamiflu 75mg P.o. daily (05/13 - -Oxygen, as needed -Mucomyst 1 tablet p.o. twice daily -Chest physiotherapy was ordered as needed. ? Started DuoNebs # History of hypertension # uncontrolled HTN -Patient was found to have blood pressure of 170/88 mmHg. -Patient lives at [facility]. -Patient is on amlodipine, lisinopril in the nursing facility based on the pharmacy refills. -Medication compliance is not known. -Uncontrolled HTN could be due to the ongoing sepsis. Plan Resumed her home medication amlodipine 5 Mg p.o. daily Hydralazine 10 Mg as needed if SBP greater than 170 mmHg # History of paroxysmal A-fib -On chart review patient was found to have atrial fibrillation in 2017 -No further episodes of atrial fibrillation noted on chart review -EKG during this admission showed normal sinus rhythm with right bundle branch block -Echo on 01/2024 showed Normal LV size and wall thickness. Estimated EF 60-65%.The RV is normal in size and systolic function. Trace mitral and trace tricuspid regurgitation Plan Will continue amiodarone 200 Mg twice daily which is her home medication. Started on metoprolol XL 25 Mg P.o. daily and will titrate the dose according to the heart rate. [id number] score is 4. # GERD Chronic, on FAMOTIDINE outpatient. Currently endorsing epigastric pain worse after eating. Denies upper or lower GI bleed. ? Started PROTONIX 40 mg daily. # Mild Transiminitis -Likely in the setting of acute illness plan will monitor levels. # History of dementia - Could be age-related # History of migraine -Patient is using triptans at facility -Will hold the medications for now and resume as needed. # Electrolyte abnormalities 05/14, potassium 3.1, repleted ? Follow-up CMP and mag Disposition: Med-tele DVT Prophylaxis: Levenox 40 mg GI Prophylaxis: Pantoprozole 40mg Diet: low sodium Code status: Full Patient plan of care was discussed with the attending physician, Dr. Cinda Aguirre, PGY1 Attending Provider Attestation/Addendum I have discussed and was present for the essential components of the history, physical examination, diagnosis, and treatment plan with the resident. I agree with the patient's care as documented by the resident and amended herein by me. Omid Loo DO. Patient seen and evaluated this AM. Although this document has been carefully reviewed, there may still be some phonetic and other typographical errors. These errors are purely grammatical due to imperfections in the software program and should not be construed in any way to compromise the substance of the patient's medical care during this visit.
[2024-05-14] MEDS: ALBUTEROL/IPRATROPIUM (Duoneb) RT SOL 3 ML NEBU INH ×2 (13:53→19:09)
--- NOTE | 2024-05-14 16:04 | PC.SS ---
Tika Corado is 79 year old female admitted to [facility] for PNA. SS conducted bedside contact with the patient to complete initial assessment and to discuss discharge planning. Pt is alert and oriented x2. SW used all precautionary measures to complete initial. SS spoke with James Corado, irene, and decision maker. James confirmed pt will return to [facility] upon discharge. James confirmed pt spouse, Zackary Corado is also at [facility]. SS confirmed [employer] Directive is on file at [facility]. Transportation will need to be provided upon DC. No further intervention required at this time, social economist would be available to address any further concerns. DC Plan: [facility] Contact: irene Jacobs, Address: Confirmed on face sheet PCP: [facility]
--- NOTE | 2024-05-14 18:18 | PC.NURSE ---
pT. HAVE A CURRENT bP OF 152/92, hr 88. md BEEN NOTIFIED AND PER md HE WILL PUT SOME ORDERS FOR bp MEDICATION
[2024-05-14] MEDS: Lisinopril 2.5 MG TABLET 10 MG PO (18:36)
--- NOTE | 2024-05-14 19:16 | PC.NURSE ---
Pt. tried to cheek pocketed and hide the medication given to her at 1830. Encourage pt. to swallow and then try to spit
[2024-05-15] VITALS (12 sets, daily range): BP systolic 131–162; BP diastolic 74–89; PULSE 67–88; RESP 15–20; TEMP 36.2–36.8; O2SAT 93–100
[2024-05-15] MEDS: BENZONATATE 100 MG CAPSULE PO ×2 (00:04→08:38)
[2024-05-15] MEDS: ACETAMINOPHEN 325 MG TABLET 650 MG PO (00:04)
[2024-05-15] MEDS: ALBUTEROL/IPRATROPIUM (Duoneb) RT SOL 3 ML NEBU INH ×4 (01:45→19:38)
[2024-05-15 06:07] LABS: Basophils % (Auto) 0 % (0-2.5); Eosinophils % (Auto) 0 % (0-10); Hematocrit 36.9 % (36.0-46.0); Hemoglobin 11.6 g/dL (12.0-16.0); Immature Granulocytes % (Auto) 1 % (0-0); Immature Granulocytes Auto 0.04 Thou/mm3 (0.00-0.00); Lymphocytes # (Auto) 1.5 Thou/mm3 (1.0-4.8); Lymphocytes % (Auto) 22 % (10-50); Mean Corpuscular HGB Conc 31.4 g/dl (31.0-37.0); Mean Corpuscular Hemoglobin 26.3 pg (25.0-35.0); Mean Corpuscular Volume 84 fL (80-100); Monocytes # (Auto) 0.4 Thou/mm3 (0.0-0.8); Monocytes % (Auto) 6 % (0-12); Neutrophils # (Auto) 4.8 Thou/mm3 (1.8-7.7); Neutrophils % (Auto) 71 % (37-80); Nucleated Red Blood Cell % 0 /100 WBC (0); Platelet Count 270 Thou/mm3 (140-440); RDW Standard Deviation 47.5 fL (36.4-46.3); Red Blood Count 4.41 Miln/mm3 (4.00-5.20); White Blood Count 6.8 Thou/mm3 (3.6-11.0)
[2024-05-15 06:42] LABS: Alanine Aminotransferase 99 U/L (10-49); Albumin, Serum 3.1 gm/dL (3.4-4.8); Albumin/Globulin Ratio 1.6 (1.2-2.2); Alkaline Phosphatase 129 U/L (46-116); Anion Gap 6 (7-16); Aspartate Amino Transferase 150 U/L (0-34); BUN/Creatinine Ratio 13 Ratio (12-20); Bilirubin,Total 0.2 mg/dL (0.3-1.2); Blood Urea Nitrogen 9 mg/dL (9-23); Calcium 8.5 mg/dL (8.3-10.6); Calcium (Corrected) 9.2 mg/dL (8.5-10.1); Carbon Dioxide 28.3 mMol/L (20.0-31.0); Chloride 104 mMol/L (98-107); Creatinine (Component) 0.7 mg/dL (0.6-1.3); Estimated Creatinine Clearance 61.7 mL/min (>60); Globulin 1.9 gm/dL (2.3-3.5); Glucose 84 mg/dL (74-106); Magnesium 1.6 mg/dL (1.6-2.6); Osmolality,Calculated 273 (275-295); Phosphorous 2.9 mg/dL (2.4-5.1); Potassium 3.8 mMol/L (3.4-5.1); Sodium 138 mMol/L (136-145); eGFR > 60 See Note
[2024-05-15] MEDS: PANTOPRAZOLE 40 MG TABLET PO (08:28)
[2024-05-15] MEDS: guaiFENesin/DM TABLET 1 EACH PO ×2 (08:28→21:33)
[2024-05-15] MEDS: DULoxetine HCL 30 MG CAPSULE PO ×2 (08:28→21:33)
[2024-05-15] MEDS: AMIODARONE HCL 200 MG TABLET PO (08:28)
[2024-05-15] MEDS: ENOXAPARIN SOD INJ 40 MG/0.4 ML SYRINGE SC (08:29)
[2024-05-15] MEDS: OSELTAMIVIR 75 MG CAPSULE PO (08:38)
[2024-05-15] MEDS: amLODIPine BESYLATE 5 MG TABLET PO (08:38)
--- NOTE | 2024-05-15 09:16 | PC.SS ---
Addendum entered by Slime Castillo 05/15/24 14:22: rounding note: Per physician patient will d/c Wednesday. Needs one more day to monitor. Original Note: rounding note: Patient stable and ready for d/c. Patient will return to [facility].
[2024-05-15] MEDS: Magnesium Sulfate 2 GM Ivpb 2 GM/50 ML BAG IV (10:28)
--- NOTE | 2024-05-15 11:25 | PC.NURSE ---
Pt. london michael call to get an update on pt.
--- NOTE | 2024-05-15 11:54 | ESPR_ITS ---
Documentation for date of: 05/15/24 Subjective Subjective Interval history: No acute overnight events. Continued to have dry cough overnight. Shortness of breath improving. Currently on room air. Endorsing throat pain, worse with coughing. Denies fever, chills, headaches, chest pain, worsening sob, cough, GI or urinary symptoms. Exam Vital Signs Temp Pulse Resp BP Pulse Ox O2 Del Method O2 Flow Rate 97.1 F 74 16 142/80 H 94 L Nasal Cannula 1 05/15/24 08:00 05/15/24 08:38 05/15/24 08:00 05/15/24 08:38 05/15/24 08:00 05/15/24 08:00 05/15/24 08:00 Narrative Exam GENERAL: Appears slightly uncomfortable due to cough and throat pain. HEENT: NCAT.?COLE. Oral mucosa is moist. Patent Nares NECK: Supple, nontender, no thyromegaly, no meningismus, no JVD, no step offs CARDIOVASCULAR: RRR, no m/g/r LUNGS: CTAB, no w/r/r. Symmetrical chest rise. No intercostal subcostal retraction. ABDOMEN: Soft, flat, nontender. No guarding/rebound tenderness/masses. +BS EXTREMITIES: Nontender.? No edema/cyanosis.?Moves all 4 extremities well, with full ROM and good CSM. SKIN: Warm and dry, no jaundice/rashes. MSK: No lumbar or midline, no CVA, no paraspinal muscle spasm or tenderness. NEURO: GRIFFIN x4, CN II-XII grossly intact.?No focal neurologic deficits. PSYCHIATRIC: Normal mood and affect, cooperative, no SI or HI or hallucinations. Objective Labs 05/15/24 05:20 05/15/24 05:20 Labs: Laboratory Results - last 24 hr 05/15/24 05:20 WBC 6.8 RBC 4.41 Hgb 11.6 L Hct 36.9 MCV 84 MCH 26.3 MCHC 31.4 RDW Std Deviation 47.5 H Plt Count 270 D Neut % (Auto) 71 Lymph % (Auto) 22 Whitley % (Auto) 6 Eos % (Auto) 0 Baso % (Auto) 0 Neut # (Auto) 4.8 Lymph # (Auto) 1.5 Whitley # (Auto) 0.4 Eos # (Auto) 0.0 Baso # (Auto) 0.0 Immature Gran # (Auto) 0.04 H Absolute Nucleated RBC 0.00 Immature Gran % 1 H Nucleated RBC % 0 Sodium 138 Potassium 3.8 D Chloride 104 Carbon Dioxide 28.3 Anion Gap 6 L BUN 9 Creatinine 0.7 Estim Creat Clear Calc 61.7 eGFR > 60 BUN/Creatinine Ratio 13 Glucose 84 Calculated Osmolality 273 L Calcium 8.5 Corrected Calcium 9.2 Phosphorus 2.9 Magnesium 1.6 Total Bilirubin 0.2 L AST 150 H ALT 99 H Alkaline Phosphatase 129 H D Total Protein 5.0 L Albumin 3.1 L D Globulin 1.9 L Albumin/Globulin Ratio 1.6 Quality Measures Quality Measures VTE prophylaxis Advance care planning discussed with:: patient Assessment & Plan Assessment Current Active Medications: Generic Name Dose Route Start Last Admin Trade Name Freq PRN Reason Stop Dose Admin Acetaminophen 650 mg 05/13/24 15:01 05/15/24 00:04 Acetaminophen 325 Mg Tablet PO 06/12/24 15:00 650 mg Q6HR PRN Administration Fever >100.1 Albuterol/Ipratropium 3 ml 05/14/24 13:00 05/15/24 06:37 Albuterol/Ipratropium (Duoneb) Rt Shanice 3 Ml Nebu INH 06/13/24 12:59 3 ml Q6HRRT YARY Administration Amiodarone HCl 200 mg 05/14/24 09:00 05/15/24 08:28 Amiodarone Hcl 200 Mg Tablet PO 06/13/24 08:59 200 mg QDAY YARY Administration Amlodipine Besylate 5 mg 05/14/24 09:00 05/15/24 08:38 Amlodipine Besylate 5 Mg Tablet PO 06/13/24 08:59 5 mg QDAY YARY Administration Benzonatate 100 mg 05/14/24 12:22 05/15/24 08:38 Benzonatate 100 Mg Capsule PO 06/13/24 12:21 100 mg Q8HR PRN Administration COUGH Protocol Duloxetine HCl 30 mg 05/13/24 21:00 05/15/24 08:28 Duloxetine Hcl 30 Mg Capsule PO 06/12/24 20:59 30 mg BID YARY Administration Enoxaparin Sodium 40 mg 05/14/24 09:00 05/15/24 08:29 Enoxaparin Sod Inj 40 Mg/0.4 Ml Syringe SC 05/28/24 08:59 40 mg QDAY YARY Administration Guaifenesin/Dextromethorphan 1 each 05/13/24 21:00 05/15/24 08:28 Guaifenesin/Dm Tablet PO 06/12/24 20:59 1 each BID YARY Administration Hydralazine HCl 10 mg 05/13/24 17:58 05/13/24 19:33 Hydralazine Inj 20 Mg/Ml Vial IV 06/12/24 17:57 10 mg Q2H PRN Administration SBP >180 Acetaminophen 1,000 mg in 100 mls @ 250 mls/hr 05/15/24 10:00 Ofirmev Inj IV 05/16/24 04:23 Q6H YARY Magnesium Sulfate 2 gm in 50 mls @ 25 mls/hr 05/15/24 10:10 05/15/24 10:28 Magnesium Sulfate Ivpb IV 05/15/24 12:09 25 mls/hr X1 ONE Administration Ondansetron HCl 4 mg 05/13/24 15:01 Ondansetron Inj 2 Mg/Ml Inj 2 Ml IV 06/12/24 15:00 Q6HR PRN NAUSEA OR VOMITING Protocol Oseltamivir Phosphate 75 mg 05/14/24 09:00 05/15/24 08:38 Oseltamivir 75 Mg Capsule PO 05/21/24 08:59 75 mg DAILY YARY Administration Pantoprazole Sodium 40 mg 05/15/24 09:00 05/15/24 08:28 Pantoprazole 40 Mg Tablet PO 06/14/24 08:59 40 mg QDAY YARY Administration Plan A 78-year-old female with a past medical history of dementia, migraines, paroxysmal atrial fibrillation, spondylosis, major depressive disorder, hypertension, admitted for acute encephalopathy in settings of influenza, pneumonia. Oxygen demand improving, currently on 1 L. However has persistent cough, new onset throat irritation. Pending workup for pharyngitis. Acute encephalopathy, resolved Acute hypoxic respiratory failure Influenza B pneumonia Possible pharyngitis Presenting with AMS likely 2/2 AHRF in settings of influenza pneumonia. Initial CXR showed atelectasis and early left base pneumonia. She was desatting in 70s at facility, currently on 1 L, satting in mid 90s. Completed short course of UNASYN/CEFTRIAXONE/AZITHROMYCIN for broad coverage. However, less likely bacterial pneumonia, nonproductive cough. Continued on TAMIFLU. Currently complaining of throat pain with swallowing and cough. Will follow-up with rapid strep test. Currently afebrile, no leukocytosis. ? Continue TAMIFLU daily (05/13 to [present]) ? Oxygen PRN ? Continue MUCOMYST BID ? Continue TESSALON 200 mg ? Continue DuoNebs ? Continue chest physiotherapy Hypertension Uncontrolled HTN Paroxysmal A-fib Hypertensive on admission, currently BP 141/76, HR 67. EKG sinus rhythm. [id number] 4. ? Continue home AMLODIPINE 5 mg daily ? HYDRALAZINE on board for SBP greater than 170 ? Continue home AMIODARONE 200 mg BID ? Continue home METOPROLOL XL 25 mg daily GERD On home FAMOTIDINE. Presented with epigastric abdominal. Controlled with current regimen. ? Continue PROTONIX 40 mg daily Mild transaminitis Presented with mild transaminitis in settings of dehydration. Initially improved, however increased again in settings of TAMIFLU. Continues to be asymptomatic. ? Daily CMP Dementia, chronic Appears at baseline ? Reorientation as needed Migraine headaches Chronic, managed with home AMITRIPTYLINE and RIZATRIPTAN. ? Continue SUMATRIPTAN 0.5 mg PRN Electrolyte abnormalities 05/14, potassium 3.1, repleted 05/15, magnesium 1.6, repleted ? Daily CMP, repleat as needed Health maintenance Diet: Cardiac GI prophylaxis: PROTONIX DVT prophylaxis: HEPARIN SUBQ Antibiotics: None, TAMFLU CODE STATUS: Full Code Disposition: Pending improvement Patient case was discussed with attending, Dr. Denilson Loo DO and senior residents Dr. Lozano and Dr. Marrufo. Jack Soler DO PGYI Attending Provider Attestation/Addendum I have discussed and was present for the essential components of the history, physical examination, diagnosis, and treatment plan with the resident. I agree with the patient's care as documented by the resident and amended herein by me. Omid Loo DO. Although this document has been carefully reviewed, there may still be some phonetic and other typographical errors. These errors are purely grammatical due to imperfections in the software program and should not be construed in any way to compromise the substance of the patient's medical care during this visit.
[2024-05-15] MEDS: ACETAMINOPHEN IVPB 1,000 MG/100 ML VIAL 250 MG IV ×2 (12:21→18:04)
[2024-05-15 14:07] LABS: Strep A Rapid Negative (Negative)
[2024-05-15] MEDS: SUMAtriptan 25 MG TABLET PO (22:43)
[2024-05-16] VITALS (10 sets, daily range): BP systolic 122–168; BP diastolic 74–101; PULSE 78–92; RESP 15–23; TEMP 36.3–36.7; O2SAT 92–99
[2024-05-16] MEDS: ALBUTEROL/IPRATROPIUM (Duoneb) RT SOL 3 ML NEBU INH ×3 (00:16→12:37)
[2024-05-16] MEDS: MELATONIN 3 MG TABLET PO (00:44)
[2024-05-16] MEDS: ACETAMINOPHEN IVPB 1,000 MG/100 ML VIAL 250 MG IV ×2 (00:44→06:38)
[2024-05-16] MEDS: QUEtiapine FUMARATE 25 MG TABLET PO (04:53)
[2024-05-16 05:58] LABS: Basophils % (Auto) 0 % (0-2.5); Eosinophils % (Auto) 0 % (0-10); Hematocrit 33.4 % (36.0-46.0); Hemoglobin 10.7 g/dL (12.0-16.0); Immature Granulocytes % (Auto) 0 % (0-0); Immature Granulocytes Auto 0.01 Thou/mm3 (0.00-0.00); Lymphocytes # (Auto) 1.2 Thou/mm3 (1.0-4.8); Lymphocytes % (Auto) 26 % (10-50); Mean Corpuscular Volume 84 fL (80-100); Monocytes # (Auto) 0.3 Thou/mm3 (0.0-0.8); Monocytes % (Auto) 7 % (0-12); Neutrophils % (Auto) 67 % (37-80); Nucleated Red Blood Cell % 0 /100 WBC (0); Platelet Count 293 Thou/mm3 (140-440); RDW Standard Deviation 47.8 fL (36.4-46.3); Red Blood Count 3.97 Miln/mm3 (4.00-5.20); White Blood Count 4.5 Thou/mm3 (3.6-11.0)
[2024-05-16 06:38] LABS: Alanine Aminotransferase 73 U/L (10-49); Albumin, Serum 3.1 gm/dL (3.4-4.8); Albumin/Globulin Ratio 1.7 (1.2-2.2); Alkaline Phosphatase 119 U/L (46-116); Anion Gap 7 (7-16); Aspartate Amino Transferase 82 U/L (0-34); BUN/Creatinine Ratio 14 Ratio (12-20); Bilirubin,Total 0.2 mg/dL (0.3-1.2); Blood Urea Nitrogen 10 mg/dL (9-23); Calcium (Corrected) 8.7 mg/dL (8.5-10.1); Carbon Dioxide 27.1 mMol/L (20.0-31.0); Chloride 102 mMol/L (98-107); Creatinine (Component) 0.7 mg/dL (0.6-1.3); Estimated Creatinine Clearance 61.7 mL/min (>60); Globulin 1.8 gm/dL (2.3-3.5); Glucose 81 mg/dL (74-106); Magnesium 1.8 mg/dL (1.6-2.6); Osmolality,Calculated 269 (275-295); Potassium 3.2 mMol/L (3.4-5.1); Sodium 136 mMol/L (136-145); Total Protein 4.9 gm/dL (5.7-8.2); eGFR > 60 See Note
[2024-05-16] MEDS: ENOXAPARIN SOD INJ 40 MG/0.4 ML SYRINGE SC (09:13)
[2024-05-16] MEDS: amLODIPine BESYLATE 5 MG TABLET PO (09:14)
[2024-05-16] MEDS: AMIODARONE HCL 200 MG TABLET PO (09:14)
[2024-05-16] MEDS: Lisinopril 20 MG TABLET 40 MG PO (09:14)
[2024-05-16] MEDS: DULoxetine HCL 30 MG CAPSULE PO ×2 (09:14→20:15)
[2024-05-16] MEDS: OSELTAMIVIR 75 MG CAPSULE PO (09:14)
[2024-05-16] MEDS: guaiFENesin/DM TABLET 1 EACH PO ×2 (09:14→20:15)
[2024-05-16] MEDS: POTASSIUM CHLORIDE 10% 20 MEQ/15 ML UDC 40 MEQ GT ×2 (09:15→12:26)
[2024-05-16] MEDS: PANTOPRAZOLE 40 MG TABLET PO (09:15)
[2024-05-16] MEDS: BENZONATATE 100 MG CAPSULE 200 MG PO (09:19)
--- NOTE | 2024-05-16 11:27 | PC.SS ---
Addendum entered by GRACIELA Vela 05/16/24 16:08: Updated Sherita at [facility] to make aware of transportation delay. Addendum entered by GRACIELA Vela 05/16/24 16:05: Contacted [employer], as patient has not been picked up by transport company. They inform there was an issue with transportation and trip was re-scheduled. Pending ETA. Provided nursing station number for ETA. office clerk routine was updated. Addendum entered by GRACIELA Vela 05/16/24 15:50: PASRR sent via file exchange to [facility]. Addendum entered by GRACIELA Vela 05/16/24 12:01: ETA is 2:30pm with [facility] transportation. [id number] bed side nurse Moises and Kennedi at [facility]. Addendum entered by GRACIELA Vela 05/16/24 11:52: Transportation arranged via [employer], reference number: [id number]. Pending ETA. Addendum entered by GRACIELA Vela 05/16/24 11:50: Spoke with patient's son, James Corado @ [phone]. Informed him patient will return to [facility], James is agreeable. Reviewed IMM rights with patient's son James. Original Note: SS update: patient has DC orders. Contacted [facility] and spoke with Kennedi to notify. She informs patient can return today.
--- NOTE | 2024-05-16 12:16 | PD.RESDS ---
Planned Discharge Date 05/16/24 DS: Providers Provider Date of admission: 05/13/24 14:20 Primary care physician: La Galo MD Admitting Provider: Denilson Loo DO Attending Provider on Admission: Denilson Loo DO Attending Provider on DC: Dr. Denilson Loo DO Discharging Provider: Dr. Denilson Loo DO DS: Diagnosis Problem List Completed Was Problem List Reviewed/Reconciled?: Yes Hospital Course Hospital Course Hospital course: This is a 78-year-old female with a past medical history of dementia, migraines, paroxysmal atrial fibrillation, spondylosis, major depressive disorder, hypertension, admitted for acute encephalopathy in settings of influenza pneumonia. Initially started patient on ANTIBIOTICS and TAMIFLU, blood cultures was negative, no sputum production to culture, ANTIBIOTICS discontinued. Symptoms, including oxygen demand overall improved. Patient tested positive for E. coli UTI for which we started ANTIBIOTICS to be continued outpatient. Overall patient stable, appears at baseline, encephalopathy resolved, medically cleared to discharge to senior living facility. PATIENT INSTRUCTIONS: Follow-up with primary care provider within 1 week of discharge. Discussed elevation for polypharmacy with your PCP Return to Emergency Room if symptoms persist, worsen, or new symptoms develop. Stop taking CLONIDINE until you're seen by your PCP Continue taking all other medications as prescribed below: ? BENZONATATE 200 mg every 4 hours as needed for cough (NEW) ? Oseltamivir 75 mg twice daily (NEW) ? PANTOPRAZOLE 40 mg release daily (NEW) ? NITROFURANTOIN 100 mg twice daily (NEW) ? ALBUTEROL sulfate inhaler every 4 hours as needed for SOB ? GUAIFENESIN 200 mg q.4 hours PRN for cough ? ALPRAZOLAM 0.25 mg twice daily as needed ? AMITRIPTYLINE 25 mg daily ? TRAMADOL 50 mg q.6h. as needed for pain ? RIZATRIPTAN 5 mg every 6 hours PRN ? BUSPIRONE 10 mg twice daily ? DULOXETINE milligram twice daily ? HYDROXYZINE q.24 hours PRN ? GABAPENTIN 300 mg 3 times daily ? AMIODARONE 200 mg twice daily ? AMLODIPINE 5 mg daily ? LISINOPRIL 40 mg daily ? METOPROLOL 25 mg BID ? SPIRONOLACTONE 50 mg daily in the morning. ? POTASSIUM CHLORIDE 10 mill equivalent daily. ? OXYBUTYNIN 10 mg daily ? IBUPROFEN 200 mg every 6 hours for moderate pain ? IBUPROFEN 400 mg every 6 hours for severe pain ? HYDROCODONE ACETAMINOPHEN 5?3 25 twice daily as needed for severe pain ? Aluminum magnesium hydroxide SIMETHICONE suspension as prescribed. ? DULCOLAX 10 mg suppository as needed for constipation ? Milk of magnesia every 3 days as needed ? ONDANSETRON 4 mg every 6 hours as needed for nausea or vomiting. ? Multivitamin tablets daily ? VITAMIN C 25 mg daily ADMISSION DIAGNOSES: Acute encephalopathy, resolved Acute hypoxic respiratory failure Influenza B pneumonia Viral pharyngitis Hypertension Uncontrolled HTN Paroxysmal A-fib GERD Mild transaminitis Dementia, chronic Migraine headaches Electrolyte abnormalities Patient case was discussed with attending, Dr. Denilson Loo DO and senior residents Dr. Lozano and Dr. Marrufo. Jack Soler DO PGYI Time Spent with Patient Time attestation: Total time spent providing and/or coordinating discharge services: Greater than 35 minutes. Exam Vital Signs Temp Pulse Resp BP Pulse Ox O2 Del Method O2 Flow Rate 97.3 F 82 20 147/80 H 94 L Room Air 3 05/16/24 11:59 05/16/24 11:59 05/16/24 11:59 05/16/24 11:59 05/16/24 11:59 05/16/24 11:59 05/16/24 07:39 Narrative Exam GENERAL: Appears slightly uncomfortable due to cough and throat pain. HEENT: NCAT.?COLE. Oral mucosa is moist. Patent Nares NECK: Supple, nontender, no thyromegaly, no meningismus, no JVD, no step offs CARDIOVASCULAR: RRR, no m/g/r LUNGS: CTAB, no w/r/r. Symmetrical chest rise. No intercostal subcostal retraction. ABDOMEN: Soft, flat, nontender. No guarding/rebound tenderness/masses. +BS EXTREMITIES: Nontender.? No edema/cyanosis.?Moves all 4 extremities well, with full ROM and good CSM. SKIN: Warm and dry, no jaundice/rashes. MSK: No lumbar or midline, no CVA, no paraspinal muscle spasm or tenderness. NEURO: GRIFFIN x4, CN II-XII grossly intact.?No focal neurologic deficits. PSYCHIATRIC: Normal mood and affect, cooperative, no SI or HI or hallucinations. Discharge Plan Plan Patient Disposition: Xfer Skilled Nsg Fac (SNF) Disposition Comment: [facility] Patient condition on transfer: Stable Prescriptions/Referrals Prescriptions/Med Rec: New benzonatate 100 mg Capsule 200 mg PO Q8HR PRN (Reason: Cough) Qty: 0 0RF oseltamivir 75 mg Capsule 75 mg PO BID 2 Days Qty: 4 0RF nitrofurantoin macrocrystal 100 mg capsule 100 mg PO BID 7 Days Qty: 14 0RF Rx Instructions: must administer with a meal/food pantoprazole [Protonix] 40 mg tablet,delayed release (DR/EC) 40 mg PO QDAY 30 Days Qty: 30 0RF Continued hydrocodone-acetaminophen 5-325 mg tablet 1 tab PO BID MDD 2 PRN (Reason: pain) Qty: 4 0RF gabapentin 300 mg Capsule 300 mg PO TID Qty: 0 0RF Hold Instructions: re-evaluate with pcp alprazolam [Xanax] 0.25 mg tablet 0.25 mg PO BID Patient Comments: TAKE 1 TABLET BY MOUTH TWICE A DAY NEEDED potassium chloride [Klor-Con 10] 10 mEq Tablet Extended Release 10 meq PO QDAY Hold Instructions: re evaluate with pcp spironolactone [Aldactone] 50 mg Tablet 50 mg PO QAM Hold Instructions: re-evaluate with pcp aripiprazole 2 mg tablet 2 mg PO DAILY Hold Instructions: re-evaluate with PCP Patient Comments: TAKE 1 TABLET BY MOUTH EVERY DAY amiodarone [Pacerone] 200 mg tablet 200 mg PO BID famotidine [Pepcid] 20 mg Tablet 20 mg PO QDAY amitriptyline 25 mg tablet 25 mg PO DAILY amlodipine 5 mg tablet 5 mg PO DAILY ascorbic acid (vitamin C) 250 mg Tablet 250 mg PO QDAY buspirone 10 mg tablet 10 mg PO BID duloxetine 20 mg capsule,delayed release(DR/EC) 20 mg PO BID lisinopril 40 mg tablet 40 mg PO DAILY metoprolol tartrate 25 mg tablet 25 mg PO BID oxybutynin chloride 10 mg tablet extended release 24hr 10 mg PO DAILY rizatriptan 5 mg tablet 5 mg PO [id number] PRN (Reason: migraine pain) tramadol 50 mg tablet 50 mg PO [id number] PRN (Reason: pain scale 4-10) Rx Instructions: moderate-severe pain ondansetron HCl 4 mg tablet 4 mg PO [id number] PRN (Reason: Nausea And Vomiting) albuterol sulfate 2.5 mg /3 mL (0.083 %) solution for nebulization 2.5 mg inhalation Q4HR PRN (Reason: Shortness Of Breath) alum-mag hydroxide-simeth [Dianne-Lanta] 200-200-20 mg/5 mL Suspension 10 ml PO [id number] PRN (Reason: Stomach Upset) Rx Instructions: administer between meals and at bedtime guaifenesin 100 mg/5 mL Liquid 200 mg PO Q4H PRN (Reason: Cough) hydroxyzine HCl 25 mg tablet 25 mg PO Q24H PRN (Reason: FOR M/B SEPARATION FROM SPOUSE) ibuprofen 200 mg Tablet 400 mg PO Q6H PRN (Reason: PAIN MODERATE(4-5),SEVERE(6-9)) magnesium hydroxide [Milk of Magnesia] 400 mg/5 mL Suspension 30 ml PO Q72H PRN (Reason: NO BM FOR 3 DAYS) multivitamin with minerals Tablet 1 tab PO QDAY bisacodyl [Dulcolax (bisacodyl)] 10 mg Suppository See Rx Instructions .ROUTE .COMPLEX PRN (Reason: Constipation) Rx Instructions: 10 mg rectally as needed ;ADMINISTERED THE FOLLOWING SHIFT IF MOM IS INEFFECTIVE Held clonidine HCl 0.1 mg Tablet 0.1 mg PO TID Qty: 0 0RF Hold Instructions: Resume on 05/23/24. BP has been stable without clonidine; can follow up with PCP on when to resume Referrals: La Galo MD [Primary Care Provider] - Patient/Caregiver Discharge Instructions Other Discharge Activity Instructions:: PATIENT INSTRUCTIONS: Follow-up with primary care provider within 1 week of discharge. Discussed elevation for polypharmacy with your PCP Return to Emergency Room if symptoms persist, worsen, or new symptoms develop. Stop taking CLONIDINE until you're seen by your PCP Continue taking all other medications as prescribed below: ? BENZONATATE 200 mg every 4 hours as needed for cough (NEW) ? Oseltamivir 75 mg twice daily (NEW) ? PANTOPRAZOLE 40 mg release daily (NEW) ? NITROFURANTOIN 100 mg twice daily (NEW) ? ALBUTEROL sulfate inhaler every 4 hours as needed for SOB ? GUAIFENESIN 200 mg q.4 hours PRN for cough ? ALPRAZOLAM 0.25 mg twice daily as needed ? AMITRIPTYLINE 25 mg daily ? TRAMADOL 50 mg q.6h. as needed for pain ? RIZATRIPTAN 5 mg every 6 hours PRN ? BUSPIRONE 10 mg twice daily ? DULOXETINE milligram twice daily ? HYDROXYZINE q.24 hours PRN ? GABAPENTIN 300 mg 3 times daily ? AMIODARONE 200 mg twice daily ? AMLODIPINE 5 mg daily ? LISINOPRIL 40 mg daily ? METOPROLOL 25 mg BID ? SPIRONOLACTONE 50 mg daily in the morning. ? POTASSIUM CHLORIDE 10 mill equivalent daily. ? OXYBUTYNIN 10 mg daily ? IBUPROFEN 200 mg every 6 hours for moderate pain ? IBUPROFEN 400 mg every 6 hours for severe pain ? HYDROCODONE ACETAMINOPHEN 5?3 25 twice daily as needed for severe pain ? Aluminum magnesium hydroxide SIMETHICONE suspension as prescribed. ? DULCOLAX 10 mg suppository as needed for constipation ? Milk of magnesia every 3 days as needed ? ONDANSETRON 4 mg every 6 hours as needed for nausea or vomiting. ? Multivitamin tablets daily ? VITAMIN C 25 mg daily Print Language: Taiwanese Discharge Order Discharge Orders: Discharge (Routine); Ordered 05/16/24 Ordered By: Alena Lozano Quality Discharge Quality Measures VTE prophylaxis MD Attestestation MD Attestation I have discussed and was present for the essential components of the discharge history, physical examination, diagnosis, and discharge treatment plan with the resident. I agree with the patient's discharge care as documented by the resident and amended herein by me. Omid Loo DO. The patient understood all discharge instructions, all questions were answered satisfactorily. The patient was instructed to return to the Emergency Department is symptoms worsened or persisted. Patient's respiratory function significantly improved, will continue a short course of Tamiflu and Macrobid for ESBL E. coli bacteriuria. Patient stable, tolerating p.o. intake and afebrile at time of discharge back to SNF. See resident note above for additional details Although this document has been carefully reviewed, there may still be some phonetic and other typographical errors. These errors are purely grammatical due to imperfections in the software program and should not be construed in any way to compromise the substance of the patient's medical care during this visit.
--- NOTE | 2024-05-16 12:39 | PC.NURSE ---
RN called [facility] to give report on 05/16 @ 12:40 pm for this pt. RN was transferred to [facility] RN x2 with no answer. This RN will attempt to call report at a later time.
--- NOTE | 2024-05-16 13:33 | PC.NURSE ---
RN called report to [facility] on 05/16 @ [id number]. ETA for transportation to arrive at [facility] is 1430.
== END 2024-05-16 20:46 | disposition skilled nursing facility (03) | DRG 193 ==
LOC: SERX 13:46 → SERHOLD 14:45 → S3SX 17:18
PROVIDERS: Nurse Practitioner Family; Admitting Provider Student in an Organized Health Care Education/Training Program; Emergency Provider Emergency Medicine; PCP Hospitalist; Visit Provider Student in an Organized Health Care Education/Training Program
DX: J10.01 Influenza due to other identified influenza virus with the same other identified influenza virus pneumonia (principal); J96.01 Acute respiratory failure with hypoxia; G93.49 Other encephalopathy; N39.0 Urinary tract infection, site not specified; F03.93 Unspecified dementia, unspecified severity, with mood disturbance; I48.0 Paroxysmal atrial fibrillation; J10.1 Influenza due to other identified influenza virus with other respiratory manifestations; E86.0 Dehydration; I10 Essential (primary) hypertension; I45.10 Unspecified right bundle-branch block; B96.20 Unspecified Escherichia coli [E. coli] as the cause of diseases classified elsewhere; G43.909 Migraine, unspecified, not intractable, without status migrainosus; K21.9 Gastro-esophageal reflux disease without esophagitis; Z98.82 Breast implant status; Z90.49 Acquired absence of other specified parts of digestive tract; Z79.899 Other long term (current) drug therapy
CPT/HCPCS: 36415; 71045; 80048; 80053; 81001; 83605; 83735; 83880; 84100; 84145; 84443; 84484; 85025; 85610; 87040; 87077; 87081; 87086; 87186; 87400; 87502; 87635; 87651; 87811; 93005; 93225; 94640; 96360; 96361; 99285; A9270; J0131; J0295; J0360; J1650; J3475; J7030

== ENCOUNTER → 2025-01-25 | Outpatient (CLI) | payer MEDICARE, MEDICAID, SELFPAY ==
--- NOTE | 2025-01-25 07:30 | XR_ITS ---
Examination: MRI thoracic spine without contrast. Date and time of exam: 01/25/2025, 0758 hours INDICATIONS: Injury to the back for months ago with fractures T5, T6, persistent back pain Technique: Multiple sagittal and axial images of the thoracic spine have been obtained. T1 weighted localizer, sagittal T2 weighted images, TR 30-50, TE 148, T1 weighted sagittal images, TR 650, TE 14, T2-weighted transverse images, TR 6770, TE 142 Findings: All of the images are degraded by continual patient motion Chronic compressions T4, T5,, T6 60% reduction in height T4, 20% reduction in height T5, 30% reduction in height T6 No acute thoracic fracture Moderate diffuse thoracic disc narrowing Thoracic disc bulges, 2 to 3 mm in the mid dorsal levels but no impingement upon the thoracic cord No localized enlargement thoracic cord Impression: Study is significantly limited secondary to patient motion Chronic compressions T4, T5, T6 Diffuse moderate thoracic degenerative disc disease. No focal thoracic disc protrusions impinging upon the thoracic cord
== END | disposition home or self-care (01) ==
PROVIDERS: Referring Provider Hospitalist; Visit Provider Hospitalist
DX: M51.34 Other intervertebral disc degeneration, thoracic region (principal); G95.29 Other cord compression; S22.050S Wedge compression fracture of T5-T6 vertebra, sequela; X58.XXXS Exposure to other specified factors, sequela
CPT/HCPCS: 72146

== ENCOUNTER → 2025-02-10 | Outpatient (CLI) | payer MEDICARE, MEDICAID, SELFPAY ==
--- NOTE | 2025-02-10 14:30 | XR_ITS ---
Examination: MRI cervical spine without intravenous contrast Date and time of exam: February 10, 2025, 1844 hrs. Indications: History fracture T5, T6, with neck pain weakness in the legs and static 8 4 months after fall Technique: Multiple axial and sagittal sections of the cervical spine to been obtained. T2 weighted sagittal sections, TR 3, 270, TE 117 T1-weighted sagittal sections, TR 500, TE 11 T1-weighted axial sections, TR 607, TE 12, axial sections TR 18, TE 27 and T2 weighted transverse sections, TR 3920, TE 122. Findings: Chronic compressions C3 mild, C4 moderate Reduction in height of the C4 fractures 50% Anterolisthesis C3 on C4 at least 4.5 mm No localized enlargement cervical cord C3-C4 advanced bilateral neural foraminal stenosis C4-C5 advanced left neural foraminal stenosis Axial images are degraded by patient motion Moderate to advanced degenerative disc disease C3-C4, C4-C5, C5-C6, C6-C7 Impression: Chronic compressions C3 and C4 vertebral bodies as above Moderate to advanced degenerative disc disease C3-C4, C4-C5, C5-C6, C6-C7 C3-C4 advanced bilateral neural foraminal stenosis C4-C5 advanced left neural foraminal stenosis
--- NOTE | 2025-02-10 15:00 | XR_ITS ---
Examination: MRI lumbar spine without contrast Date and time of exam: February 10, 2025, 1611 hrs., Comparison April 09, 2020 Indications: History spine fractures, back pain weakness in the legs altered gait after injury 4 months ago Technique: Multiple MRI axial and sagittal sections lumbar spine. Sagittal T2-weighted images, TR 3500, TE 118 T1 weighted transverse sections, TR 688 T8.5, T2-weighted sagittal sections T1 weighted sagittal sections TR 621, TE 30 T2 axial sections, TR 4, 190, TE 84. Findings: Grade 1 anterolisthesis L4 on L5 No acute lumbar fracture Diffuse lumbar disc desiccation Moderate to advanced disc narrowing upper 4 lumbar levels L5-S1 6 mm central lumbar disc bulge displacing the right and left S1 nerve roots L4-L5 moderate to severe overall spinal stenosis, axial image 4, 4 mm central lumbar disc bulge, facet arthropathy and thickening of ligamentum flavum circumferentially narrowing the thecal sac L3-L4 no disc protrusion L2-L3 foraminal disc bulges but no ganglionic compression L1-L2 foraminal disc bulges but no ganglionic compression Impression: Moderate to advanced degenerative disc disease upper 4 lumbar levels L5-S1 6 mm central lumbar disc bulge displacing both the right and left S1 nerve roots. L4-L5 moderate to severe overall spinal stenosis as above
== END | disposition home or self-care (01) ==
LOC: SMRI 14:07
PROVIDERS: Referring Provider Hospitalist; Visit Provider Hospitalist
DX: M50.31 Other cervical disc degeneration, high cervical region (principal); M48.02 Spinal stenosis, cervical region; M51.360 Other intervertebral disc degeneration, lumbar region with discogenic back pain only; M48.061 Spinal stenosis, lumbar region without neurogenic claudication; M51.370 Other intervertebral disc degeneration, lumbosacral region with discogenic back pain only
CPT/HCPCS: 72141; 72148